=== PATIENT | male | born 1960 | race Caucasian/White ===

== ENCOUNTER → 2017-05-16 | Outpatient (REF) | payer OTHER ==
[~2017-05-16] MED LIST: /ESCI20TA PO; /MELO7TA PO; /TAMS4CA PO; ALPR0.5T3 PO; AMIT25TA PO; ASPI81TA4 PO; ATIV1TAB7 PO; CARA1TAB2 PO; COLA100C5 PO; DILA2TAB6 PO; DILA4TAB PO; DOCU100C PO; ENTO3CAP5 PO; FLON0.05; HEPA100SY IV; IMIT100T PO; LISI-538 PO; LOPR1TAB6 PO; LYRI75CA PO; MACR100C42 PO; MELO7.5S PO; MS C200T PO; MULTCAP PO; NEUR300C PO; NICO21DI4; NICO21PAT TD; NORC1TAB4 PO; OMEGA 3 PO; ONETAB4 PO; PENT500C4 PO; PERC5TAB12 PO; PRAV40TA2 PO; PRIL40CA PO; REGL10TA6 PO; SALI0.9I2 IV; THERGRAN; TIZA4CAP3 PO; TYLE325T5 PO; VITA10002 PO; VITAMIN B COMPLE1 PO; XANA1TAB2 PO; ZEST20TA8 PO; ZOFR4SOL PO; ZOFR8TAB SL; [UNRECOGNIZED DRUG - CODE] TD; [UNRECOGNIZED DRUG - CODE] TOP
== END ==
LOC: M SMT 16:43
PROVIDERS: ATTEND Nurse Practitioner Women's Health
DX: Z85.51 Personal history of malignant neoplasm of bladder (principal)

== ENCOUNTER 2017-05-19 10:57 | Outpatient (CLI) | payer OTHER ==
[~2017-05-19] VITALS: Ht 180.3 cm; Wt 100.0 kg
[~2017-05-19 10:57] MED LIST changes: +SODIUM CHLORIDE 0.9% INJ 10 ML SYR IV SCH
== END 2017-05-19 11:55 | disposition home or self-care (01) ==
LOC: M INFU 10:57
PROVIDERS: ATTEND Urology
DX: R97.20 Elevated prostate specific antigen [PSA] (principal); Z85.51 Personal history of malignant neoplasm of bladder; K50.90 Crohn's disease, unspecified, without complications; F17.210 Nicotine dependence, cigarettes, uncomplicated; Z88.5 Allergy status to narcotic agent; Z88.8 Allergy status to other drugs, medicaments and biological substances; Z88.2 Allergy status to sulfonamides; Z91.040 Latex allergy status; Z79.899 Other long term (current) drug therapy

== ENCOUNTER 2017-08-09 12:34 | Day surgery (SDC) | payer OTHER ==
[2017-08-09] MEDS ORDERED: fentaNYL 250 MCG/5 ML INJECTION (J3010) As Ordered ×2 (13:20)
[2017-08-09] MEDS ORDERED: ONDANSETRON 4MG/2ML VIAL (J2405) As Ordered ×2 (14:33)
[2017-08-09] MEDS: ONDANSETRON 4MG/2ML VIAL (J2405) IV ×2 (14:40)
[2017-08-09] MEDS: LR 1,000 ML IV ×2 (14:40)
[2017-08-09] MEDS ORDERED: ROCURONIUM BROMIDE 50 MG/5 ML VIAL As Ordered ×2 (16:05)
[2017-08-09] MEDS ORDERED: LIDOCAINE 2% INJ 100 MG/5 ML SDV (FOR ANES.) As Ordered ×2 (16:05)
[2017-08-09] MEDS ORDERED: MIDAZOLAM INJ 2 MG/2 ML VIAL (J2250) As Ordered ×2 (16:06)
[2017-08-09] MEDS ORDERED: PROPOFOL 200 MG/20 ML VIAL As Ordered ×2 (16:06)
[2017-08-09] MEDS ORDERED: SUGAMMADEX SODIUM 500 MG/5 ML VIAL (BRIDION) As Ordered ×2 (17:25)
[2017-08-09] MEDS ORDERED: fentaNYL 100 MCG/2 ML INJECTION (J3010) IV ×2 (18:30)
[2017-08-09] MEDS ORDERED: HYDROmorphone HCL 1 MG/ML SYRINGE (J1170) IV ×2 (18:30)
[2017-08-09] MEDS ORDERED: LR 1,000 ML IV ×2 (18:30)
== END 2017-08-09 19:20 | disposition home or self-care (01) ==
LOC: M SDC 19:20
DX: Z85.51 Personal history of malignant neoplasm of bladder (principal); K50.90 Crohn's disease, unspecified, without complications; K21.9 Gastro-esophageal reflux disease without esophagitis; T88.59XD Other complications of anesthesia, subsequent encounter; I10 Essential (primary) hypertension; K58.9 Irritable bowel syndrome, unspecified; M12.9 Arthropathy, unspecified; Z88.1 Allergy status to other antibiotic agents; Z88.2 Allergy status to sulfonamides; Z88.5 Allergy status to narcotic agent; Z88.6 Allergy status to analgesic agent; Z88.8 Allergy status to other drugs, medicaments and biological substances; Z79.899 Other long term (current) drug therapy; Z79.01 Long term (current) use of anticoagulants; Z86.718 Personal history of other venous thrombosis and embolism; Z72.0 Tobacco use
CPT/HCPCS: 52000

== ENCOUNTER → 2017-08-14 | Outpatient (REF) | payer OTHER ==
[2017-08-14 13:37] LABS: APPEARANCE, URINE CLEAR (CLEAR); BACTERIA, URINE AUTO NEGATIVE (NEGATIVE); BILIRUBIN, URINE AUTO NEGATIVE (NEGATIVE); BLOOD, URINE BLOOD 1+ (NEGATIVE); COLOR, URINE YELLOW (YELLOW); GLUCOSE, URINE (UA) AUTO NEGATIVE (NEGATIVE); KETONE, URINE AUTO NEGATIVE (NEGATIVE); LEUKOCYTE ESTERASE, URINE AUTO NEGATIVE (NEGATIVE); MUCUS, URINE SMALL (NEGATIVE); NITRITE, URINE AUTO NEGATIVE (NEGATIVE); PROTEIN, URINE AUTO NEGATIVE (NEGATIVE); RBC, URINE AUTO 2 /HPF (0-3); SPECIFIC GRAVITY URINE AUTO 1.019 (1.002-1.035); SQUAMOUS EPITHELIAL CELL UR AU 0 /HPF (0-6); UROBILINOGEN, URINE AUTO 0.2 mg/dL (0.0-2.0); WBC, URINE AUTO 1 /HPF (0-3)
== END ==
LOC: M SMT 13:06
DX: R30.0 Dysuria (principal)

== ENCOUNTER 2017-08-31 18:49 | Inpatient (IN) | payer OTHER ==
[2017-08-31] MEDS: ONDANSETRON 4MG/2ML VIAL (J2405) IV (20:13)
[2017-08-31] MEDS: HYDROmorphone HCL 1 MG/ML SYRINGE (J1170) IV ×4 (20:13→23:14)
[2017-08-31] MEDS: GASTROGRAFIN SOLUTION 30ML PO ×2 (20:15→20:33)
[2017-08-31 20:28] LABS: BASO % 0.3 % (0.0-1.0); EOS % 0.1 % (0.0-3.0); HEMATOCRIT 42.8 % (42.0-52.0); HEMOGLOBIN 14.8 g/dl (14.0-18.0); IMMATURE GRANULOCYTE # 0.1 10^3/uL (0-0); IMMATURE GRANULOCYTE % 1.4 % (0-0); LYMPH # 0.6 10^3/uL (1.5-4.5); LYMPH % 6.2 % (24.0-44.0); MEAN CORPUSCULAR HEMOGLOBIN 32.5 pg (27.0-33.0); MEAN CORPUSCULAR HGB CONC 34.6 g/dl (32.0-36.5); MEAN CORPUSCULAR VOLUME 94.1 fl (80.0-96.0); MONO # 0.1 10^3/uL (0.0-0.8); MONO % 0.6 % (0.0-5.0); NEUTROPHILS # 8.6 10^3/uL (1.8-7.7); NEUTROPHILS % 91.4 % (36.0-66.0); PLATELET COUNT, AUTOMATED 379 10^3/uL (150-450); RED BLOOD COUNT 4.55 10^6/uL (4.30-6.10); RED CELL DISTRIBUTION WIDTH 12.7 % (11.5-14.5); WHITE BLOOD COUNT 9.4 10^3/uL (4.0-10.0)
[2017-08-31 20:41] LABS: KETONE, URINE AUTO RFX TRACE mg/dL (NEGATIVE); LEUKOCYTE ESTERASE UR AUTO RFX TRACE (NEGATIVE); MUCUS, URINE RFX SMALL (NEGATIVE); NITRITE, URINE AUTO RFX NEGATIVE (NEGATIVE); RBC, URINE AUTO RFX 2 /HPF (0-3); SPECIFIC GRAVITY UR AUTO RFX 1.021 (1.002-1.035); SQUAM EPITHELIAL CELL UR AURFX 0 /HPF (0-6); WBC, URINE AUTO RFX 1 /HPF (0-3)
[2017-08-31 20:42] LABS: ALBUMIN 3.8 GM/DL (3.2-5.2); ALBUMIN/GLOBULIN RATIO 1.19 (1.00-1.93); ALKALINE PHOSPHATASE 89 U/L (45-117); ALT/SGPT 70 U/L (12-78); ANION GAP 6 MEQ/L (8-16); AST/SGOT 29 U/L (7-37); BILIRUBIN,DIRECT 0.1 MG/DL (0.0-0.2); BILIRUBIN,TOTAL 0.3 MG/DL (0.2-1.0); BLOOD UREA NITROGEN 13 MG/DL (7-18); CALCIUM LEVEL 8.5 MG/DL (8.5-10.1); CARBON DIOXIDE LEVEL 26 MEQ/L (21-32); CHLORIDE LEVEL 110 MEQ/L (98-107); GLOMERULAR FILTRATION RATE > 60.0 (>56); GLUCOSE, FASTING 138 MG/DL (70-100); LIPASE 223 U/L (73-393); POTASSIUM SERUM 4.4 MEQ/L (3.5-5.1); SODIUM LEVEL 142 MEQ/L (136-145)
[2017-08-31 20:43] LABS: LACTIC ACID SEPSIS PROTOCOL 1.2 MMOL/L (0.4-2.0)
[2017-08-31 20:44] LABS: INR 1.03; PROTHROMBIN TIME 13.6 SECONDS (12.4-14.5)
[2017-08-31 20:45] LABS: PARTIAL THROMBOPLASTIN TIME 34.4 SECONDS (26.8-37.9)
[2017-08-31] MEDS: PROMETHAZINE INJ 25 MG/ML VIAL (J2550) IV (21:59)
[2017-09-01] MEDS ORDERED: HYDROmorphone 2 MG TAB PO (00:30)
[2017-09-01] MEDS: ONDANSETRON 4MG/2ML VIAL (J2405) IV ×2 (01:17→09:02)
[2017-09-01] MEDS: NS 1,000 ML IV ×2 (01:18→14:22)
[2017-09-01] MEDS ORDERED: HYDROmorphone HCL 1 MG/ML SYRINGE (J1170) IV (01:30)
[2017-09-01] MEDS: HYDROmorphone HCL 1 MG/ML SYRINGE (J1170) IV ×7 (01:44→21:42)
[2017-09-01] MEDS: LOSARTAN 50 MG TAB PO ×2 (01:48→21:41)
[2017-09-01] MEDS ORDERED: ENOXAPARIN 40 MG/0.4 ML SYRINGE (J1650) SC (09:00)
[2017-09-01] MEDS ORDERED: OMEPRAZOLE 20 MG CAP PO (09:00)
[2017-09-01] MEDS: SODIUM CHLORIDE 0.9% INJ 10 ML SYR IV (09:00)
[2017-09-01] MEDS: PANTOPRAZOLE 40MG INJ (PROTONIX) (C9113) IV (09:01)
[2017-09-01] MEDS: ENOXAPARIN 100MG/1ML SYRINGE (J1650) SC ×2 (09:01→20:00)
[2017-09-01] MEDS: MIRALAX *UNIT DOSE* 17GM PACKET PO (12:14)
[2017-09-01] MEDS: METOCLOPRAMIDE INJ 10MG/2ML VIAL (J2765) IV ×2 (12:14→18:19)
[2017-09-01] MEDS: ERYTHROMYCIN ETHYLSUCCINATE 400 MG TAB PO ×2 (14:22→18:18)
[2017-09-02] MEDS: METOCLOPRAMIDE INJ 10MG/2ML VIAL (J2765) IV ×4 (00:44→18:08)
[2017-09-02] MEDS: ERYTHROMYCIN ETHYLSUCCINATE 400 MG TAB PO ×4 (00:44→18:08)
[2017-09-02] MEDS: HYDROmorphone HCL 1 MG/ML SYRINGE (J1170) IV ×7 (00:45→21:18)
[2017-09-02] MEDS: NS 1,000 ML IV ×2 (04:14→18:08)
[2017-09-02 04:40] LABS: HEMATOCRIT 36.2 % (42.0-52.0); MEAN CORPUSCULAR HEMOGLOBIN 32.1 pg (27.0-33.0); MEAN CORPUSCULAR HGB CONC 33.7 g/dl (32.0-36.5); MEAN CORPUSCULAR VOLUME 95.3 fl (80.0-96.0); PLATELET COUNT, AUTOMATED 327 10^3/uL (150-450); WHITE BLOOD COUNT 10.7 10^3/uL (4.0-10.0)
[2017-09-02 04:45] LABS: HEMOGLOBIN 12.2 g/dl (14.0-18.0)
[2017-09-02 05:04] LABS: ALBUMIN 3.1 GM/DL (3.2-5.2); ALBUMIN/GLOBULIN RATIO 1.29 (1.00-1.93); ALKALINE PHOSPHATASE 63 U/L (45-117); ALT/SGPT 53 U/L (12-78); ANION GAP 7 MEQ/L (8-16); AST/SGOT 18 U/L (7-37); BILIRUBIN,TOTAL 0.4 MG/DL (0.2-1.0); BLOOD UREA NITROGEN 12 MG/DL (7-18); CALCIUM LEVEL 7.8 MG/DL (8.5-10.1); CARBON DIOXIDE LEVEL 27 MEQ/L (21-32); CHLORIDE LEVEL 109 MEQ/L (98-107); CREATININE FOR GFR 0.91 MG/DL (0.70-1.30); GLOMERULAR FILTRATION RATE > 60.0 (>56); GLUCOSE, FASTING 73 MG/DL (70-100); POTASSIUM SERUM 3.8 MEQ/L (3.5-5.1); SODIUM LEVEL 143 MEQ/L (136-145); TOTAL PROTEIN 5.5 GM/DL (6.4-8.2)
[2017-09-02] MEDS: ENOXAPARIN 100MG/1ML SYRINGE (J1650) SC ×2 (09:20→21:17)
[2017-09-02] MEDS: PANTOPRAZOLE 40MG INJ (PROTONIX) (C9113) IV (09:20)
[2017-09-02] MEDS: SODIUM CHLORIDE 0.9% INJ 10 ML SYR IV (09:20)
[2017-09-02] MEDS: MIRALAX *UNIT DOSE* 17GM PACKET PO (09:21)
[2017-09-02] MEDS: ONDANSETRON 4MG/2ML VIAL (J2405) IV (12:47)
[2017-09-02] MEDS: diphenhydrAMINE 25 MG CAP PO (15:31)
[2017-09-02] MEDS: LOSARTAN 50 MG TAB PO (21:17)
[2017-09-03] MEDS: ERYTHROMYCIN ETHYLSUCCINATE 400 MG TAB PO ×4 (00:46→14:14)
[2017-09-03] MEDS: METOCLOPRAMIDE INJ 10MG/2ML VIAL (J2765) IV ×4 (00:46→18:01)
[2017-09-03] MEDS: HYDROmorphone HCL 1 MG/ML SYRINGE (J1170) IV ×7 (00:46→21:31)
[2017-09-03] MEDS: NS 1,000 ML IV ×2 (04:04→18:02)
[2017-09-03 04:15] LABS: HEMATOCRIT 37.3 % (42.0-52.0); HEMOGLOBIN 12.8 g/dl (14.0-18.0); MEAN CORPUSCULAR HEMOGLOBIN 32.6 pg (27.0-33.0); MEAN CORPUSCULAR HGB CONC 34.3 g/dl (32.0-36.5); MEAN CORPUSCULAR VOLUME 94.9 fl (80.0-96.0); PLATELET COUNT, AUTOMATED 301 10^3/uL (150-450); RED BLOOD COUNT 3.93 10^6/uL (4.30-6.10); RED CELL DISTRIBUTION WIDTH 12.8 % (11.5-14.5); WHITE BLOOD COUNT 8.4 10^3/uL (4.0-10.0)
[2017-09-03 04:58] LABS: ALBUMIN 3.2 GM/DL (3.2-5.2); ALBUMIN/GLOBULIN RATIO 1.07 (1.00-1.93); ALKALINE PHOSPHATASE 76 U/L (45-117); ALT/SGPT 53 U/L (12-78); ANION GAP 9 MEQ/L (8-16); AST/SGOT 19 U/L (7-37); BILIRUBIN,TOTAL 0.6 MG/DL (0.2-1.0); BLOOD UREA NITROGEN 9 MG/DL (7-18); CALCIUM LEVEL 8.2 MG/DL (8.5-10.1); CARBON DIOXIDE LEVEL 27 MEQ/L (21-32); CHLORIDE LEVEL 107 MEQ/L (98-107); CREATININE FOR GFR 0.86 MG/DL (0.70-1.30); GLOMERULAR FILTRATION RATE > 60.0 (>56); GLUCOSE, FASTING 71 MG/DL (70-100); POTASSIUM SERUM 3.6 MEQ/L (3.5-5.1); SODIUM LEVEL 143 MEQ/L (136-145); TOTAL PROTEIN 6.2 GM/DL (6.4-8.2)
[2017-09-03] MEDS: PANTOPRAZOLE 40MG INJ (PROTONIX) (C9113) IV (07:41)
[2017-09-03] MEDS: ONDANSETRON 4MG/2ML VIAL (J2405) IV ×2 (07:41→21:33)
[2017-09-03] MEDS: ENOXAPARIN 100MG/1ML SYRINGE (J1650) SC ×2 (07:41→21:32)
[2017-09-03] MEDS: MIRALAX *UNIT DOSE* 17GM PACKET PO (07:42)
[2017-09-03] MEDS: SODIUM CHLORIDE 0.9% INJ 10 ML SYR IV (07:43)
[2017-09-03] MEDS: diphenhydrAMINE 25 MG CAP PO (14:32)
[2017-09-03] MEDS: LOSARTAN 50 MG TAB PO (21:33)
[2017-09-04] MEDS: METOCLOPRAMIDE INJ 10MG/2ML VIAL (J2765) IV ×5 (00:16→23:10)
[2017-09-04] MEDS: HYDROmorphone HCL 1 MG/ML SYRINGE (J1170) IV ×8 (00:17→22:48)
[2017-09-04 04:28] LABS: HEMATOCRIT 38.2 % (42.0-52.0); HEMOGLOBIN 13.1 g/dl (14.0-18.0); MEAN CORPUSCULAR HEMOGLOBIN 32.3 pg (27.0-33.0); MEAN CORPUSCULAR HGB CONC 34.3 g/dl (32.0-36.5); MEAN CORPUSCULAR VOLUME 94.3 fl (80.0-96.0); PLATELET COUNT, AUTOMATED 312 10^3/uL (150-450); RED BLOOD COUNT 4.05 10^6/uL (4.30-6.10); RED CELL DISTRIBUTION WIDTH 12.8 % (11.5-14.5); WHITE BLOOD COUNT 9.2 10^3/uL (4.0-10.0)
[2017-09-04 05:01] LABS: ALBUMIN 3.2 GM/DL (3.2-5.2); ALKALINE PHOSPHATASE 71 U/L (45-117); ALT/SGPT 49 U/L (12-78); ANION GAP 7 MEQ/L (8-16); AST/SGOT 21 U/L (7-37); BILIRUBIN,TOTAL 0.5 MG/DL (0.2-1.0); BLOOD UREA NITROGEN 8 MG/DL (7-18); CALCIUM LEVEL 8.4 MG/DL (8.5-10.1); CARBON DIOXIDE LEVEL 28 MEQ/L (21-32); CHLORIDE LEVEL 106 MEQ/L (98-107); CREATININE FOR GFR 0.88 MG/DL (0.70-1.30); GLOMERULAR FILTRATION RATE > 60.0 (>56); GLUCOSE, FASTING 78 MG/DL (70-100); POTASSIUM SERUM 3.8 MEQ/L (3.5-5.1); SODIUM LEVEL 141 MEQ/L (136-145); TOTAL PROTEIN 6.1 GM/DL (6.4-8.2)
[2017-09-04] MEDS: ERYTHROMYCIN ETHYLSUCCINATE 400 MG TAB PO ×5 (06:29→23:11)
[2017-09-04] MEDS: NS 1,000 ML IV ×2 (08:26→22:33)
[2017-09-04] MEDS: PANTOPRAZOLE 40MG INJ (PROTONIX) (C9113) IV (08:27)
[2017-09-04] MEDS: MIRALAX *UNIT DOSE* 17GM PACKET PO (08:27)
[2017-09-04] MEDS: SODIUM CHLORIDE 0.9% INJ 10 ML SYR IV ×2 (08:27→18:35)
[2017-09-04] MEDS: ENOXAPARIN 100MG/1ML SYRINGE (J1650) SC ×2 (08:27→20:43)
[2017-09-04] MEDS: ONDANSETRON 4MG/2ML VIAL (J2405) IV (20:43)
[2017-09-04] MEDS: LOSARTAN 50 MG TAB PO (20:46)
[2017-09-04] MEDS: diphenhydrAMINE 25 MG CAP PO (23:10)
[2017-09-05] MEDS: HYDROmorphone HCL 1 MG/ML SYRINGE (J1170) IV ×7 (03:31→22:10)
[2017-09-05] MEDS: ONDANSETRON 4MG/2ML VIAL (J2405) IV ×4 (03:39→22:09)
[2017-09-05] MEDS: METOCLOPRAMIDE INJ 10MG/2ML VIAL (J2765) IV ×4 (05:23→23:49)
[2017-09-05] MEDS: ERYTHROMYCIN ETHYLSUCCINATE 400 MG TAB PO ×4 (05:23→23:49)
[2017-09-05 05:34] LABS: HEMATOCRIT 39.2 % (42.0-52.0); HEMOGLOBIN 13.6 g/dl (14.0-18.0); MEAN CORPUSCULAR HEMOGLOBIN 32.5 pg (27.0-33.0); MEAN CORPUSCULAR HGB CONC 34.7 g/dl (32.0-36.5); MEAN CORPUSCULAR VOLUME 93.6 fl (80.0-96.0); PLATELET COUNT, AUTOMATED 327 10^3/uL (150-450); RED BLOOD COUNT 4.19 10^6/uL (4.30-6.10); RED CELL DISTRIBUTION WIDTH 12.9 % (11.5-14.5)
[2017-09-05 06:00] LABS: ALBUMIN 3.2 GM/DL (3.2-5.2); ALKALINE PHOSPHATASE 75 U/L (45-117); ALT/SGPT 51 U/L (12-78); ANION GAP 7 MEQ/L (8-16); AST/SGOT 20 U/L (7-37); BILIRUBIN,TOTAL 0.6 MG/DL (0.2-1.0); BLOOD UREA NITROGEN 6 MG/DL (7-18); CALCIUM LEVEL 8.7 MG/DL (8.5-10.1); CARBON DIOXIDE LEVEL 29 MEQ/L (21-32); CHLORIDE LEVEL 105 MEQ/L (98-107); CREATININE FOR GFR 0.86 MG/DL (0.70-1.30); GLOMERULAR FILTRATION RATE > 60.0 (>56); GLUCOSE, FASTING 80 MG/DL (70-100); POTASSIUM SERUM 3.7 MEQ/L (3.5-5.1); SODIUM LEVEL 141 MEQ/L (136-145); TOTAL PROTEIN 6.1 GM/DL (6.4-8.2)
[2017-09-05] MEDS: SODIUM CHLORIDE 0.9% INJ 10 ML SYR IV ×2 (07:38→23:04)
[2017-09-05] MEDS: MIRALAX *UNIT DOSE* 17GM PACKET PO (07:58)
[2017-09-05] MEDS: PANTOPRAZOLE 40MG INJ (PROTONIX) (C9113) IV (08:02)
[2017-09-05] MEDS: ENOXAPARIN 100MG/1ML SYRINGE (J1650) SC ×2 (08:02→20:29)
[2017-09-05] MEDS: NS 1,000 ML IV (09:45)
[2017-09-05] MEDS: LOSARTAN 50 MG TAB PO (20:29)
[2017-09-05] MEDS: diphenhydrAMINE 25 MG CAP PO (22:11)
[2017-09-06] MEDS: HYDROmorphone HCL 1 MG/ML SYRINGE (J1170) IV ×2 (01:28→05:22)
[2017-09-06] MEDS: SODIUM CHLORIDE 0.9% INJ 10 ML SYR IV ×3 (01:29→07:40)
[2017-09-06] MEDS: METOCLOPRAMIDE INJ 10MG/2ML VIAL (J2765) IV (05:21)
[2017-09-06] MEDS: ONDANSETRON 4MG/2ML VIAL (J2405) IV (05:21)
[2017-09-06] MEDS: ERYTHROMYCIN ETHYLSUCCINATE 400 MG TAB PO ×3 (05:21→07:37)
[2017-09-06 05:40] LABS: HEMATOCRIT 39.4 % (42.0-52.0); HEMOGLOBIN 13.5 g/dl (14.0-18.0); MEAN CORPUSCULAR HEMOGLOBIN 32.4 pg (27.0-33.0); MEAN CORPUSCULAR HGB CONC 34.3 g/dl (32.0-36.5); MEAN CORPUSCULAR VOLUME 94.5 fl (80.0-96.0); PLATELET COUNT, AUTOMATED 338 10^3/uL (150-450); RED BLOOD COUNT 4.17 10^6/uL (4.30-6.10); RED CELL DISTRIBUTION WIDTH 13.1 % (11.5-14.5); WHITE BLOOD COUNT 8.5 10^3/uL (4.0-10.0)
[2017-09-06 06:05] LABS: ALBUMIN 3.3 GM/DL (3.2-5.2); ALBUMIN/GLOBULIN RATIO 1.18 (1.00-1.93); ALKALINE PHOSPHATASE 72 U/L (45-117); ALT/SGPT 48 U/L (12-78); ANION GAP 9 MEQ/L (8-16); AST/SGOT 18 U/L (7-37); BILIRUBIN,TOTAL 0.4 MG/DL (0.2-1.0); BLOOD UREA NITROGEN 9 MG/DL (7-18); CALCIUM LEVEL 8.5 MG/DL (8.5-10.1); CARBON DIOXIDE LEVEL 28 MEQ/L (21-32); CHLORIDE LEVEL 108 MEQ/L (98-107); CREATININE FOR GFR 0.99 MG/DL (0.70-1.30); GLOMERULAR FILTRATION RATE > 60.0 (>56); GLUCOSE, FASTING 83 MG/DL (70-100); POTASSIUM SERUM 3.9 MEQ/L (3.5-5.1); SODIUM LEVEL 145 MEQ/L (136-145); TOTAL PROTEIN 6.1 GM/DL (6.4-8.2)
[2017-09-06] MEDS: MIRALAX *UNIT DOSE* 17GM PACKET PO (07:31)
[2017-09-06] MEDS: PANTOPRAZOLE 40MG TAB (PROTONIX) PO (07:41)
[2017-09-06] MEDS: ENOXAPARIN 100MG/1ML SYRINGE (J1650) SC (07:41)
[2017-09-06] MEDS: ONDANSETRON 4 MG ORAL DISINTEGRATING TAB (S0181) SL (08:15)
[2017-09-06] MEDS: traMADol 50 MG TAB PO (08:40)
== END 2017-09-06 14:57 | disposition home or self-care (01) | DRG 251 ==
LOC: M ED INP 23:30 → M MSPAV 09-01 00:52 → M ED 18:49
DX: R10.9 Unspecified abdominal pain (principal); I10 Essential (primary) hypertension; M10.9 Gout, unspecified; K21.9 Gastro-esophageal reflux disease without esophagitis; M19.90 Unspecified osteoarthritis, unspecified site; F17.220 Nicotine dependence, chewing tobacco, uncomplicated; F17.210 Nicotine dependence, cigarettes, uncomplicated; K59.00 Constipation, unspecified; Z86.718 Personal history of other venous thrombosis and embolism; Z79.01 Long term (current) use of anticoagulants; Z79.899 Other long term (current) drug therapy; Z98.1 Arthrodesis status; Z90.49 Acquired absence of other specified parts of digestive tract; Z88.6 Allergy status to analgesic agent; Z88.5 Allergy status to narcotic agent; Z88.2 Allergy status to sulfonamides; Z91.040 Latex allergy status; Z88.8 Allergy status to other drugs, medicaments and biological substances

== ENCOUNTER 2017-09-10 18:03 | Inpatient (IN) | payer OTHER ==
[2017-09-10 19:47] LABS: BASO # 0.1 10^3/uL (0.0-0.2); BASO % 0.6 % (0.0-1.0); EOS # 0.2 10^3/uL (0.0-0.50); EOS % 1.3 % (0.0-3.0); HEMATOCRIT 40.5 % (42.0-52.0); HEMOGLOBIN 13.7 g/dl (14.0-18.0); IMMATURE GRANULOCYTE % 0.5 % (0-3.0); LYMPH # 1.9 10^3/uL (1.5-4.5); MEAN CORPUSCULAR HEMOGLOBIN 32.7 pg (27.0-33.0); MEAN CORPUSCULAR HGB CONC 33.8 g/dl (32.0-36.5); MEAN CORPUSCULAR VOLUME 96.7 fl (80.0-96.0); MONO # 0.7 10^3/uL (0.0-0.8); MONO % 5.5 % (0.0-5.0); NEUTROPHILS # 9.8 10^3/uL (1.8-7.7); NEUTROPHILS % 77.1 % (36.0-66.0); PLATELET COUNT, AUTOMATED 287 10^3/uL (150-450); RED BLOOD COUNT 4.19 10^6/uL (4.30-6.10); RED CELL DISTRIBUTION WIDTH 13.5 % (11.5-14.5); WHITE BLOOD COUNT 12.7 10^3/uL (4.0-10.0)
[2017-09-10] MEDS: NS 500 ML IV (19:47)
[2017-09-10] MEDS: diphenhydrAMINE INJ 50MG/ML VIAL (J1200) IV (19:48)
[2017-09-10] MEDS: HALOPERIDOL 5 MG/ML VIAL (J1630) IV (19:48)
[2017-09-10] MEDS: HYDROmorphone HCL 1 MG/ML SYRINGE (J1170) IV ×3 (19:48→22:56)
[2017-09-10] MEDS: GASTROGRAFIN SOLUTION 30ML PO ×2 (19:56→20:30)
[2017-09-10 20:02] LABS: ALBUMIN 3.6 GM/DL (3.2-5.2); ALKALINE PHOSPHATASE 80 U/L (45-117); ALT/SGPT 39 U/L (12-78); ANION GAP 7 MEQ/L (8-16); AST/SGOT 16 U/L (7-37); BILIRUBIN,DIRECT 0.1 MG/DL (0.0-0.2); BILIRUBIN,TOTAL 0.4 MG/DL (0.2-1.0); BLOOD UREA NITROGEN 8 MG/DL (7-18); CALCIUM LEVEL 8.5 MG/DL (8.5-10.1); CARBON DIOXIDE LEVEL 28 MEQ/L (21-32); CHLORIDE LEVEL 107 MEQ/L (98-107); CREATININE FOR GFR 0.95 MG/DL (0.70-1.30); GLOMERULAR FILTRATION RATE > 60.0 (>56); GLUCOSE, FASTING 102 MG/DL (70-100); LIPASE 138 U/L (73-393); POTASSIUM SERUM 3.8 MEQ/L (3.5-5.1); SODIUM LEVEL 142 MEQ/L (136-145); TOTAL PROTEIN 6.6 GM/DL (6.4-8.2)
[2017-09-10 20:04] LABS: INR 1.04; PROTHROMBIN TIME 13.7 SECONDS (12.4-14.5)
[2017-09-10 20:06] LABS: LACTIC ACID SEPSIS PROTOCOL 2.7 MMOL/L (0.4-2.0)
[2017-09-10] MEDS ORDERED: ISOVUE-370 76% 100ML VIAL (Q9967) As Ordered (20:35)
[2017-09-11] MEDS ORDERED: DOCUSATE SODIUM 100 MG CAP PO (01:30)
[2017-09-11] MEDS ORDERED: FLUTICASONE PROP 0.05% NASAL SPRAY 16 GM (FLONASE) (01:30)
[2017-09-11] MEDS: NS 1,000 ML IV ×3 (02:13→19:39)
[2017-09-11] MEDS: HYDROmorphone HCL 1 MG/ML SYRINGE (J1170) IV ×7 (02:16→22:52)
[2017-09-11] MEDS: ONDANSETRON 4MG/2ML VIAL (J2405) IV ×4 (02:20→22:52)
[2017-09-11] MEDS: RIVAROXABAN 20 MG TAB (XARELTO) PO ×2 (02:59→21:16)
[2017-09-11] MEDS: LOSARTAN 50 MG TAB PO ×2 (02:59→21:16)
[2017-09-11] MEDS: PANTOPRAZOLE 40MG INJ (PROTONIX) (C9113) IV (09:36)
[2017-09-11 11:26] LABS: BASO # 0.1 10^3/uL (0.0-0.2); BASO % 0.7 % (0.0-1.0); EOS # 0.3 10^3/uL (0.0-0.50); EOS % 3.6 % (0.0-3.0); HEMATOCRIT 37.7 % (42.0-52.0); HEMOGLOBIN 12.7 g/dl (14.0-18.0); IMMATURE GRANULOCYTE % 0.9 % (0-3.0); LYMPH # 2.3 10^3/uL (1.5-4.5); LYMPH % 31.5 % (24.0-44.0); MEAN CORPUSCULAR HEMOGLOBIN 32.8 pg (27.0-33.0); MEAN CORPUSCULAR HGB CONC 33.7 g/dl (32.0-36.5); MEAN CORPUSCULAR VOLUME 97.4 fl (80.0-96.0); MONO # 0.6 10^3/uL (0.0-0.8); MONO % 8.3 % (0.0-5.0); NEUTROPHILS # 4.1 10^3/uL (1.8-7.7); PLATELET COUNT, AUTOMATED 238 10^3/uL (150-450); RED BLOOD COUNT 3.87 10^6/uL (4.30-6.10); RED CELL DISTRIBUTION WIDTH 13.5 % (11.5-14.5); WHITE BLOOD COUNT 7.4 10^3/uL (4.0-10.0)
[2017-09-11 11:45] LABS: ERYTHROCYTE SEDIMENTATION RATE 19 mm/hr (0-20)
[2017-09-11 11:56] LABS: ANION GAP 5 MEQ/L (8-16); BLOOD UREA NITROGEN 9 MG/DL (7-18); C REACTIVE PROTEIN QUANTITATIV 0.59 MG/DL (0.00-0.30); CALCIUM LEVEL 8.3 MG/DL (8.5-10.1); CARBON DIOXIDE LEVEL 30 MEQ/L (21-32); CHLORIDE LEVEL 108 MEQ/L (98-107); GLOMERULAR FILTRATION RATE > 60.0 (>56); GLUCOSE, FASTING 83 MG/DL (70-100); POTASSIUM SERUM 3.8 MEQ/L (3.5-5.1); SODIUM LEVEL 143 MEQ/L (136-145)
[2017-09-11] MEDS: diphenhydrAMINE 25 MG CAP PO (19:38)
[2017-09-12] MEDS: HYDROmorphone HCL 1 MG/ML SYRINGE (J1170) IV ×8 (01:42→23:36)
[2017-09-12] MEDS: ONDANSETRON 4MG/2ML VIAL (J2405) IV ×3 (05:21→17:39)
[2017-09-12] MEDS: NS 1,000 ML IV ×3 (05:21→23:36)
[2017-09-12 07:18] LABS: HEMATOCRIT 38.2 % (42.0-52.0); HEMOGLOBIN 12.7 g/dl (14.0-18.0); MEAN CORPUSCULAR HEMOGLOBIN 31.8 pg (27.0-33.0); MEAN CORPUSCULAR HGB CONC 33.2 g/dl (32.0-36.5); MEAN CORPUSCULAR VOLUME 95.7 fl (80.0-96.0); PLATELET COUNT, AUTOMATED 241 10^3/uL (150-450); RED BLOOD COUNT 3.99 10^6/uL (4.30-6.10); RED CELL DISTRIBUTION WIDTH 12.9 % (11.5-14.5); WHITE BLOOD COUNT 7.4 10^3/uL (4.0-10.0)
[2017-09-12 07:41] LABS: ANION GAP 9 MEQ/L (8-16); BLOOD UREA NITROGEN 9 MG/DL (7-18); CALCIUM LEVEL 8.3 MG/DL (8.5-10.1); CARBON DIOXIDE LEVEL 27 MEQ/L (21-32); CHLORIDE LEVEL 106 MEQ/L (98-107); CREATININE FOR GFR 0.85 MG/DL (0.70-1.30); GLOMERULAR FILTRATION RATE > 60.0 (>56); GLUCOSE, FASTING 72 MG/DL (70-100); POTASSIUM SERUM 3.6 MEQ/L (3.5-5.1); SODIUM LEVEL 142 MEQ/L (136-145)
[2017-09-12] MEDS: diphenhydrAMINE 25 MG CAP PO (09:30)
[2017-09-12] MEDS: PANTOPRAZOLE 40MG INJ (PROTONIX) (C9113) IV (09:30)
[2017-09-12] MEDS: RIVAROXABAN 20 MG TAB (XARELTO) PO (20:46)
[2017-09-12] MEDS: LOSARTAN 50 MG TAB PO (20:46)
[2017-09-13] MEDS: HYDROmorphone HCL 1 MG/ML SYRINGE (J1170) IV ×5 (02:31→14:33)
[2017-09-13] MEDS: ONDANSETRON 4MG/2ML VIAL (J2405) IV ×2 (05:37→11:38)
[2017-09-13 05:52] LABS: HEMATOCRIT 38.2 % (42.0-52.0); HEMOGLOBIN 13.1 g/dl (14.0-18.0); MEAN CORPUSCULAR HEMOGLOBIN 32.2 pg (27.0-33.0); MEAN CORPUSCULAR HGB CONC 34.3 g/dl (32.0-36.5); MEAN CORPUSCULAR VOLUME 93.9 fl (80.0-96.0); PLATELET COUNT, AUTOMATED 249 10^3/uL (150-450); RED BLOOD COUNT 4.07 10^6/uL (4.30-6.10); RED CELL DISTRIBUTION WIDTH 12.8 % (11.5-14.5); WHITE BLOOD COUNT 8.3 10^3/uL (4.0-10.0)
[2017-09-13 06:13] LABS: ANION GAP 9 MEQ/L (8-16); BLOOD UREA NITROGEN 10 MG/DL (7-18); CALCIUM LEVEL 8.1 MG/DL (8.5-10.1); CARBON DIOXIDE LEVEL 26 MEQ/L (21-32); CHLORIDE LEVEL 106 MEQ/L (98-107); CREATININE FOR GFR 0.82 MG/DL (0.70-1.30); GLOMERULAR FILTRATION RATE > 60.0 (>56); GLUCOSE, FASTING 68 MG/DL (70-100); POTASSIUM SERUM 3.7 MEQ/L (3.5-5.1); SODIUM LEVEL 141 MEQ/L (136-145)
[2017-09-13] MEDS: PANTOPRAZOLE 40MG INJ (PROTONIX) (C9113) IV (08:33)
[2017-09-13] MEDS: NS 1,000 ML IV (08:34)
== END 2017-09-13 17:20 | disposition home or self-care (01) | DRG 251 ==
LOC: M ED INP 09-11 01:07 → M MS5PR 09-11 01:45 → M ED 18:03
DX: R10.9 Unspecified abdominal pain (principal); K50.90 Crohn's disease, unspecified, without complications; I10 Essential (primary) hypertension; K66.0 Peritoneal adhesions (postprocedural) (postinfection); K21.9 Gastro-esophageal reflux disease without esophagitis; Z79.01 Long term (current) use of anticoagulants; Z91.040 Latex allergy status; Z88.2 Allergy status to sulfonamides; Z88.5 Allergy status to narcotic agent; Z88.8 Allergy status to other drugs, medicaments and biological substances; Z98.1 Arthrodesis status; F17.210 Nicotine dependence, cigarettes, uncomplicated

== ENCOUNTER → 2017-10-30 | Outpatient (REF) | payer MEDICARE, OTHER, MEDICAID ==
[2017-10-30 13:51] LABS: APPEARANCE, URINE HAZY (CLEAR); BACTERIA, URINE AUTO NEGATIVE (NEGATIVE); BILIRUBIN, URINE AUTO NEGATIVE (NEGATIVE); BLOOD, URINE BLOOD 1+ (NEGATIVE); COLOR, URINE YELLOW (YELLOW); GLUCOSE, URINE (UA) AUTO NEGATIVE (NEGATIVE); KETONE, URINE AUTO NEGATIVE (NEGATIVE); LEUKOCYTE ESTERASE, URINE AUTO NEGATIVE (NEGATIVE); MUCUS, URINE SMALL (NEGATIVE); NITRITE, URINE AUTO NEGATIVE (NEGATIVE); PROTEIN, URINE AUTO NEGATIVE (NEGATIVE); RBC, URINE AUTO 1 /HPF (0-3); SPECIFIC GRAVITY URINE AUTO 1.019 (1.002-1.035); SQUAMOUS EPITHELIAL CELL UR AU 0 /HPF (0-6); UROBILINOGEN, URINE AUTO 0.2 mg/dL (0.0-2.0); WBC, URINE AUTO 1 /HPF (0-3)
== END ==
LOC: M SMT 12:51
DX: R35.0 Frequency of micturition (principal)
CPT/HCPCS: 81001

== ENCOUNTER 2018-01-24 21:30 | Inpatient (IN) | payer MEDICARE, MEDICAID ==
[~2018-01-24 21:30] MED LIST changes: -/ESCI20TA PO; -/MELO7TA PO; -/TAMS4CA PO; -ALPR0.5T3 PO; -AMIT25TA PO; -ASPI81TA4 PO; -ATIV1TAB7 PO; -CARA1TAB2 PO; -COLA100C5 PO; -DILA2TAB6 PO; -DILA4TAB PO; -DOCU100C PO; -ENTO3CAP5 PO; -FLON0.05; -HEPA100SY IV; -IMIT100T PO; +KETOROLAC 30 MG/ML VIAL (J1885) IV; -LISI-538 PO; -LOPR1TAB6 PO; -LYRI75CA PO; -MACR100C42 PO; -MELO7.5S PO; +MOM 30ML SUSPENSION UDC PO; -MS C200T PO; -MULTCAP PO; -NEUR300C PO; -NICO21DI4; -NICO21PAT TD; -NORC1TAB4 PO; -OMEGA 3 PO; -ONETAB4 PO; -PENT500C4 PO; -PERC5TAB12 PO; -PRAV40TA2 PO; -PRIL40CA PO; -REGL10TA6 PO; -SALI0.9I2 IV; -SODIUM CHLORIDE 0.9% INJ 10 ML SYR IV SCH; -THERGRAN; -TIZA4CAP3 PO; -TYLE325T5 PO; -VITA10002 PO; -VITAMIN B COMPLE1 PO; -XANA1TAB2 PO; -ZEST20TA8 PO; -ZOFR4SOL PO; -ZOFR8TAB SL; -[UNRECOGNIZED DRUG - CODE] TD; -[UNRECOGNIZED DRUG - CODE] TOP
[2018-01-24] MEDS: SENOKOT S TAB PO (22:21)
[2018-01-24] MEDS: ONDANSETRON 4MG/2ML VIAL (J2405) IV (22:32)
[2018-01-24] MEDS: MORPHINE 4 MG/ML 1ML VIAL/SYRINGE (J2270) IV (22:45)
[2018-01-24] MEDS: LR 1,000 ML IV (23:00)
[2018-01-25] MEDS: MORPHINE 4 MG/ML 1ML VIAL/SYRINGE (J2270) IV ×9 (01:09→22:18)
[2018-01-25] MEDS: ONDANSETRON 4MG/2ML VIAL (J2405) IV ×3 (06:12→22:18)
[2018-01-25] MEDS: LR 1,000 ML IV ×3 (06:12→21:57)
[2018-01-25 07:33] LABS: BASO # 0.1 10^3/uL (0.0-0.2); BASO % 0.8 % (0.0-1.0); EOS # 0.2 10^3/uL (0.0-0.50); EOS % 2.8 % (0.0-3.0); HEMATOCRIT 38.8 % (42.0-52.0); HEMOGLOBIN 13.1 g/dl (13.5-17.5); IMMATURE GRANULOCYTE % 0.7 % (0-3.0); LYMPH % 26.1 % (24.0-44.0); MEAN CORPUSCULAR HEMOGLOBIN 32.2 pg (27.0-33.0); MEAN CORPUSCULAR HGB CONC 33.8 g/dl (32.0-36.5); MEAN CORPUSCULAR VOLUME 95.3 fl (80.0-96.0); MONO # 0.6 10^3/uL (0.0-0.8); NEUTROPHILS # 4.6 10^3/uL (1.8-7.7); NEUTROPHILS % 61.6 % (36.0-66.0); PLATELET COUNT, AUTOMATED 254 10^3/uL (150-450); RED BLOOD COUNT 4.07 10^6/uL (4.30-6.10); WHITE BLOOD COUNT 7.5 10^3/uL (4.0-10.0)
[2018-01-25 07:55] LABS: ANION GAP 8 MEQ/L (8-16); BLOOD UREA NITROGEN 11 MG/DL (7-18); CALCIUM LEVEL 8.2 MG/DL (8.5-10.1); CARBON DIOXIDE LEVEL 29 MEQ/L (21-32); CHLORIDE LEVEL 108 MEQ/L (98-107); GLOMERULAR FILTRATION RATE > 60.0 (>56); GLUCOSE, FASTING 100 MG/DL (70-100); POTASSIUM SERUM 4.2 MEQ/L (3.5-5.1); SODIUM LEVEL 145 MEQ/L (136-145)
[2018-01-25] MEDS: SENOKOT S TAB PO ×2 (08:19→20:31)
[2018-01-25] MEDS: METOCLOPRAMIDE INJ 10MG/2ML VIAL (J2765) IV ×3 (08:19→20:30)
[2018-01-25] MEDS: LOSARTAN 50 MG TAB PO (09:37)
[2018-01-25] MEDS: diphenhydrAMINE 25 MG CAP PO (11:21)
[2018-01-25] MEDS: RIVAROXABAN 20 MG TAB (XARELTO) PO (17:04)
[2018-01-25] MEDS: clonazePAM 1 MG TAB PO (17:04)
[2018-01-25] MEDS ORDERED: METOCLOPRAMIDE INJ 10MG/2ML VIAL (J2765) IV (18:00)
[2018-01-25] MEDS ORDERED: LOSARTAN 50 MG TAB PO (21:00)
[2018-01-26] MEDS: MORPHINE 4 MG/ML 1ML VIAL/SYRINGE (J2270) IV ×11 (01:46→23:56)
[2018-01-26] MEDS: METOCLOPRAMIDE INJ 10MG/2ML VIAL (J2765) IV ×4 (01:46→20:06)
[2018-01-26] MEDS: LR 1,000 ML IV ×3 (05:14→21:00)
[2018-01-26] MEDS: ONDANSETRON 4MG/2ML VIAL (J2405) IV ×2 (07:02→20:06)
[2018-01-26 07:03] LABS: C REACTIVE PROTEIN QUANTITATIV 1.46 MG/DL (0.00-0.30)
[2018-01-26] MEDS: LOSARTAN 50 MG TAB PO (08:05)
[2018-01-26] MEDS: SENOKOT S TAB PO ×2 (08:05→21:46)
[2018-01-26] MEDS: RIVAROXABAN 20 MG TAB (XARELTO) PO (17:20)
[2018-01-27] MEDS: MORPHINE 4 MG/ML 1ML VIAL/SYRINGE (J2270) IV ×4 (02:25→09:11)
[2018-01-27] MEDS: METOCLOPRAMIDE INJ 10MG/2ML VIAL (J2765) IV ×2 (02:25→08:39)
[2018-01-27] MEDS: LR 1,000 ML IV (04:29)
[2018-01-27] MEDS: ONDANSETRON 4MG/2ML VIAL (J2405) IV (06:30)
[2018-01-27 07:10] LABS: HEMATOCRIT 41.8 % (42.0-52.0); HEMOGLOBIN 14.2 g/dl (13.5-17.5); MEAN CORPUSCULAR HEMOGLOBIN 32.1 pg (27.0-33.0); MEAN CORPUSCULAR VOLUME 94.6 fl (80.0-96.0); PLATELET COUNT, AUTOMATED 264 10^3/uL (150-450); RED BLOOD COUNT 4.42 10^6/uL (4.30-6.10); RED CELL DISTRIBUTION WIDTH 13.2 % (11.5-14.5); WHITE BLOOD COUNT 7.2 10^3/uL (4.0-10.0)
[2018-01-27 07:47] LABS: ANION GAP 10 MEQ/L (8-16); BLOOD UREA NITROGEN 10 MG/DL (7-18); CALCIUM LEVEL 8.6 MG/DL (8.5-10.1); CARBON DIOXIDE LEVEL 28 MEQ/L (21-32); CHLORIDE LEVEL 103 MEQ/L (98-107); CREATININE FOR GFR 0.85 MG/DL (0.70-1.30); GLOMERULAR FILTRATION RATE > 60.0 (>56); GLUCOSE, FASTING 65 MG/DL (70-100); SODIUM LEVEL 141 MEQ/L (136-145)
[2018-01-27] MEDS: SENOKOT S TAB PO (08:39)
[2018-01-27] MEDS: LOSARTAN 50 MG TAB PO (08:39)
[2018-01-27] MEDS ORDERED: SODIUM CHLORIDE 0.9% INJ 10 ML SYR IV (11:45)
[2018-01-27] MEDS: SODIUM CHLORIDE 0.9% INJ 10 ML SYR IV (12:06)
== END 2018-01-27 12:20 | disposition home or self-care (01) | DRG 390 ==
LOC: M PED 21:30
DX: K56.51 Intestinal adhesions [bands], with partial obstruction (principal); M17.12 Unilateral primary osteoarthritis, left knee; I10 Essential (primary) hypertension; Z79.01 Long term (current) use of anticoagulants; Z79.899 Other long term (current) drug therapy; Z91.040 Latex allergy status; Z88.2 Allergy status to sulfonamides; Z86.718 Personal history of other venous thrombosis and embolism; Z88.6 Allergy status to analgesic agent; Z88.5 Allergy status to narcotic agent; Z88.8 Allergy status to other drugs, medicaments and biological substances

== ENCOUNTER → 2018-05-23 | Outpatient (REF) | payer MEDICARE, MEDICAID ==
[2018-05-23 14:33] LABS: APPEARANCE, URINE CLEAR (CLEAR); BACTERIA, URINE AUTO NEGATIVE (NEGATIVE); BILIRUBIN, URINE AUTO NEGATIVE (NEGATIVE); BLOOD, URINE BLOOD NEGATIVE (NEGATIVE); COLOR, URINE YELLOW (YELLOW); GLUCOSE, URINE (UA) AUTO NEGATIVE (NEGATIVE); KETONE, URINE AUTO NEGATIVE (NEGATIVE); LEUKOCYTE ESTERASE, URINE AUTO NEGATIVE (NEGATIVE); NITRITE, URINE AUTO NEGATIVE (NEGATIVE); PROTEIN, URINE AUTO NEGATIVE (NEGATIVE); RBC, URINE AUTO 1 /HPF (0-3); SPECIFIC GRAVITY URINE AUTO 1.019 (1.002-1.035); SQUAMOUS EPITHELIAL CELL UR AU 0 /HPF (0-6); UROBILINOGEN, URINE AUTO 0.2 mg/dL (0.0-2.0); WBC, URINE AUTO 1 /HPF (0-3)
== END ==
LOC: M SMT 13:25
DX: R30.0 Dysuria (principal)
CPT/HCPCS: 81001

== ENCOUNTER → 2018-08-16 | Outpatient (REF) | payer MEDICARE, MEDICAID ==
[~2018-08-16] MED LIST changes: +/ESCI20TA PO; +/MELO7TA PO; +/TAMS4CA PO; +ALPR0.5T3 PO; +AMIT25TA PO; +ASPI81TA4 PO; +ATIV1TAB7 PO; +CARA1TAB2 PO; +COLA100C5 PO; +DILA2TAB6 PO; +DILA4TAB PO; +DOCU100C PO; +ENTO3CAP5 PO; +FLON0.05; +FLON1SPR; +HEPA100SY IV; +IMIT100T PO; -KETOROLAC 30 MG/ML VIAL (J1885) IV; +LINZ72CA PO; +LISI-538 PO; +LOPR1TAB6 PO; +LOSA50TA88 PO; +LYRI75CA PO; +MACR100C42 PO; +MELO7.5S PO; -MOM 30ML SUSPENSION UDC PO; +MS C200T PO; +MULTCAP PO; +NEUR300C PO; +NICO21DI4; +NICO21PAT TD; +NORC1TAB4 PO; +OMEGA 3 PO; +ONDA4TAB5 PO; +ONETAB4 PO; +PENT500C4 PO; +PERC5TAB12 PO; +PRAV40TA2 PO; +PRED10TA2 PO; +PRIL40CA PO; +REGL10TA6 PO; +SALI0.9I2 IV; +THERGRAN; +TIZA4CAP PO; +TRAM50TA2 PO; +TYLE325T5 PO; +VITA10002 PO; +VITA30005 SL; +VITAMIN B COMPLE1 PO; +VITMTA PO; +XANA1TAB2 PO; +XARE20TA PO; +ZEST20TA8 PO; +ZOFR4SOL PO; +ZOFR8TAB24 SL; +[UNRECOGNIZED DRUG - CODE] TD; +[UNRECOGNIZED DRUG - CODE] TOP
[2018-08-16 13:24] LABS: APPEARANCE, URINE HAZY (CLEAR); BACTERIA, URINE AUTO NEGATIVE (NEGATIVE); BILIRUBIN, URINE AUTO NEGATIVE (NEGATIVE); BLOOD, URINE BLOOD NEGATIVE (NEGATIVE); COLOR, URINE YELLOW (YELLOW); GLUCOSE, URINE (UA) AUTO NEGATIVE (NEGATIVE); KETONE, URINE AUTO NEGATIVE (NEGATIVE); LEUKOCYTE ESTERASE, URINE AUTO NEGATIVE (NEGATIVE); MUCUS, URINE SMALL (NEGATIVE); NITRITE, URINE AUTO NEGATIVE (NEGATIVE); PROTEIN, URINE AUTO NEGATIVE (NEGATIVE); RBC, URINE AUTO 3 /HPF (0-3); SQUAMOUS EPITHELIAL CELL UR AU 0 /HPF (0-6); UROBILINOGEN, URINE AUTO 0.2 mg/dL (0.0-2.0); WBC, URINE AUTO 1 /HPF (0-3)
== END ==
LOC: M SMT 13:05
PROVIDERS: ATTEND Nurse Practitioner Women's Health
DX: R30.0 Dysuria (principal)
CPT/HCPCS: 81001; 87086; G0463

== ENCOUNTER → 2018-10-25 | Outpatient (REF) | payer MEDICARE, MEDICAID ==
[~2018-10-25] MED LIST changes: +OMEP10CASR PO
== END ==
LOC: M SMT 13:05
PROVIDERS: ATTEND Urology
DX: R30.0 Dysuria (principal)

== ENCOUNTER 2018-11-07 08:39 | Day surgery (SDC) | payer MEDICARE, MEDICAID ==
[~2018-11-07] VITALS: Ht 180.3 cm; Wt 102.1 kg
[~2018-11-07 08:39] MED LIST changes: -/ESCI20TA PO; -/MELO7TA PO; -/TAMS4CA PO; +BUDE3CAP15 PO; -ENTO3CAP5 PO; +FLOM0.4C39 PO; +LEXA1TAB2 PO; +MOBI4TAB PO; +NICO21DI3 TD; -NICO21PAT TD; -NORC1TAB4 PO; +NORC1TAB7 PO
[2018-11-07 09:28] LABS: INR 1.08; PROTHROMBIN TIME 14.1 SECONDS (12.1-14.4)
[2018-11-07] MEDS ORDERED: MIDAZOLAM INJ 2 MG/2 ML VIAL (J2250) As Ordered ONE (10:06)
[2018-11-07] MEDS ORDERED: LIDOCAINE 2% INJ 100 MG/5 ML SDV (FOR ANES.) As Ordered ONE (10:06)
[2018-11-07] MEDS ORDERED: PROPOFOL 200 MG/20 ML VIAL As Ordered ONE (10:06)
[2018-11-07] MEDS ORDERED: ONDANSETRON 4MG/2ML VIAL (J2405) As Ordered ONE (10:06)
[2018-11-07] MEDS ORDERED: fentaNYL 100 MCG/2 ML INJECTION (J3010) As Ordered ONE ×2 (10:06→10:40)
[2018-11-07] MEDS ORDERED: dexameTHASONE 4 MG/ML 1ML VIAL (J1100) As Ordered ONE (10:06)
[2018-11-07] MEDS ORDERED: LABETALOL HCL 100 MG/20 ML VIAL As Ordered ONE (10:40)
[2018-11-07] MEDS: LABETALOL HCL 100 MG/20 ML VIAL IV SCH ×4 (10:43→11:08)
[2018-11-07] MEDS ORDERED: LR 1,000 ML IV SCH (10:45)
[2018-11-07] MEDS ORDERED: ONDANSETRON 4MG/2ML VIAL (J2405) IV PRN (10:45)
[2018-11-07] MEDS ORDERED: ACETAMINOPHEN TAB 650MG DOSE (2X325MG) PO PRN (10:45)
[2018-11-07] MEDS ORDERED: MEPERIDINE INJ 25 MG/ML VIAL (J2175) IV PRN (10:45)
[2018-11-07] MEDS ORDERED: PERCOCET 5MG/325MG TAB PO PRN (10:45)
[2018-11-07] MEDS ORDERED: METOCLOPRAMIDE INJ 10MG/2ML VIAL (J2765) IV PRN (10:45)
[2018-11-07] MEDS: fentaNYL 100 MCG/2 ML INJECTION (J3010) IV PRN ×4 (10:45→11:08)
--- NOTE | 2018-11-07 10:49 | RO ---
DATE OF PROCEDURE: 11/07/2018 PREPROCEDURE DIAGNOSIS: History of bladder cancer, gross hematuria. POSTPROCEDURE DIAGNOSIS: Gross hematuria. PROCEDURE: Cystoscopy, fulguration of prostatic urethral bleeding. SURGEON: Dr. Cristi Barth AUDIT REVIEWER: None. ANESTHESIA: General. OPERATIVE INDICATIONS: This is a 58-year-old male with a history of low grade bladder cancer who is recently having gross hematuria. He did not want to have a cystoscopy done in the office and was therefore brought to the operating room today to investigate the source of bleeding. DESCRIPTION OF PROCEDURE: The patient was brought to the operating room and general anesthesia was induced. Prophylactic antibiotics were infused. He was then placed in dorsal lithotomy position and prepped and draped in the usual sterile fashion. A rigid cystoscope was then inserted into the urethral meatus and advanced into the bladder. The bladder was then thoroughly examined with both the 30 and 70 degrees lenses and no tumors or other concerning lesions were seen within the bladder. Bilateral ureteral orifices were orthotopic and both effluxed clear urine. This indicated that the source of bleeding was likely not from the bladder. I then withdrew the scope and examined the prostatic urethra and noted there was a small amount of bleeding coming from the prostatic urethra at 12 o'clock. This was fulgurated using a Bugbee. The patient had bilobar benign prostatic hyperplasia and the prostate did appear to be very vascular. At this point, after fulgurating the bleeding area, the bladder was emptied of all fluids and then the scope was removed. This marked the conclusion of the procedure. The patient was then taken out of the dorsal lithotomy position, awakened from anesthesia and transported to the recovery room in stable condition. Estimated blood loss: 5 mL. Complications: None. Specimen: None. Plan: The patient will followup in the clinic in a few weeks to see if his hematuria resolves. I suspect that the hematuria is related to bleeding from a very vascular prostate. He is also on Xarelto and this probably contributes to it.
[2018-11-07 11:08] VITALS: BP 156/96
[2018-11-07] MEDS ORDERED: HYDROMORPHONE HCL 0.5 MG/ 0.5 ML SYRINGE (J1170 PER 1) As Ordered ONE ×2 (11:14→11:40)
[2018-11-07] MEDS: HYDROMORPHONE HCL 0.5 MG/ 0.5 ML SYRINGE (J1170 PER 1) IV PRN ×4 (11:21→12:00)
[2018-11-07 12:55] VITALS: BP 150/92
[2018-11-07] MEDS ORDERED: SODIUM CHLORIDE 0.9% INJ 10 ML SYR IV PRN (13:15)
== END 2018-11-07 13:37 | disposition home or self-care (01) ==
LOC: M SDC 08:39
PROVIDERS: ATTEND Urology
DX: R31.0 Gross hematuria (principal); Z85.51 Personal history of malignant neoplasm of bladder; R97.20 Elevated prostate specific antigen [PSA]; I10 Essential (primary) hypertension; K21.9 Gastro-esophageal reflux disease without esophagitis; K50.90 Crohn's disease, unspecified, without complications; K58.8 Other irritable bowel syndrome; Z79.01 Long term (current) use of anticoagulants; Z91.040 Latex allergy status; Z88.8 Allergy status to other drugs, medicaments and biological substances; Z79.899 Other long term (current) drug therapy; F17.220 Nicotine dependence, chewing tobacco, uncomplicated; Z86.718 Personal history of other venous thrombosis and embolism
CPT/HCPCS: 52214; 85610; J1100; J2250; J2405; J3010

== ENCOUNTER → 2018-12-10 | Outpatient (REF) | payer MEDICARE, MEDICAID ==
[2018-12-10 13:57] LABS: APPEARANCE, URINE CLEAR (CLEAR); BACTERIA, URINE AUTO NEGATIVE (NEGATIVE); BILIRUBIN, URINE AUTO NEGATIVE (NEGATIVE); BLOOD, URINE BLOOD NEGATIVE (NEGATIVE); COLOR, URINE YELLOW (YELLOW); GLUCOSE, URINE (UA) AUTO NEGATIVE (NEGATIVE); KETONE, URINE AUTO TRACE mg/dL (NEGATIVE); LEUKOCYTE ESTERASE, URINE AUTO NEGATIVE (NEGATIVE); MUCUS, URINE SMALL (NEGATIVE); NITRITE, URINE AUTO NEGATIVE (NEGATIVE); PROTEIN, URINE AUTO NEGATIVE (NEGATIVE); RBC, URINE AUTO 2 /HPF (0-3); SPECIFIC GRAVITY URINE AUTO 1.023 (1.002-1.035); SQUAMOUS EPITHELIAL CELL UR AU 0 /HPF (0-6); WBC, URINE AUTO 2 /HPF (0-3)
== END ==
LOC: M SMT 13:27
PROVIDERS: ATTEND Urology
DX: R39.15 Urgency of urination (principal)
CPT/HCPCS: 81001; 87086; G0463

== ENCOUNTER 2020-10-29 02:33 | Inpatient (IN) | payer MEDICARE, MEDICAID ==
[~2020-10-29] VITALS: Ht 180.3 cm; Wt 108.1 kg
[~2020-10-29 02:33] MED LIST changes: -AMIT25TA PO; +AMIT25TA17 PO; +CYAN100049 PO; -LISI-538 PO; +LISI20TA33 PO; +ONDA-83 PO; -ONDA4TAB5 PO; -VITA10002 PO
[2020-10-29] MEDS ORDERED: NS 500 ML IV ONE (03:00)
[2020-10-29] MEDS ORDERED: ONDANSETRON 4MG/2ML VIAL IV ONE (03:00)
[2020-10-29] MEDS ORDERED: POTA1TAB14 (03:12)
[2020-10-29] MEDS ORDERED: PRED20TA (03:12)
[2020-10-29] MEDS: HYDROMORPHONE HCL 0.5 MG/ 0.5 ML SYRINGE (J1170 PER 1) IV PRN ×3 (03:18→21:45)
[2020-10-29 03:42] LABS: BASO # 0.1 10^3/uL (0.0-0.2); BASO % 0.5 % (0.0-1.0); EOS # 0.1 10^3/uL (0.0-0.5); EOS % 0.3 % (0.0-3.0); HEMOGLOBIN 16.2 g/dl (13.5-17.5); LYMPH # 0.8 10^3/uL (1.5-5.0); LYMPH % 4.5 % (24.0-44.0); MEAN CORPUSCULAR HEMOGLOBIN 31.7 pg (27.0-33.0); MEAN CORPUSCULAR HGB CONC 32.4 g/dl (32.0-36.5); MEAN CORPUSCULAR VOLUME 97.8 fl (80.0-96.0); MONO # 1.2 10^3/uL (0.0-0.8); MONO % 6.7 % (2.0-8.0); NEUTROPHILS # 15.3 10^3/uL (1.5-8.5); NEUTROPHILS % 87.2 % (36.0-66.0); PLATELET COUNT, AUTOMATED 357 10^3/uL (150-450); RED BLOOD COUNT 5.11 10^6/uL (4.30-6.10); WHITE BLOOD COUNT 17.5 10^3/uL (4.0-10.0)
[2020-10-29] MEDS ORDERED: PRED20TA PO (04:34)
[2020-10-29] MEDS ORDERED: VITA500T37 PO (04:34)
[2020-10-29] MEDS ORDERED: VITMTA PO (04:34)
--- NOTE | 2020-10-29 05:18 | CR.PDOC ---
General Date of Consultation: Oct 29, 2020 Referring Provider: Zay Macedo Attending Physician: LEA COLON MD Consultation REASON FOR CONSULTATION/CHIEF COMPLAINT: [HTN]. HISTORY OF PRESENT ILLNESS: [This is a 60 y/o M with a pmh of crohn's s/p 5 bowel resection surgeries, dvt, and htn transferred to our ED after being diagnosed with an SBO via CT at an outside facility. Patient states that his symptoms began a day ago and include severe abd pain, distention, non-bloody emesis, nausea and constipation. Patient states he had one small bowel movement yesterday but it was hard to pass. Patient states he is not passing flatus. Patient denies fever, chills, chest pain, sob. ]. ALLERGIES: Please see below. HOME MEDICATIONS: Please see below. PAST MEDICAL HISTORY: 1. See HPI PAST SURGICAL HISTORY: 1. See HPI SOCIAL HISTORY: Tobacco use:[quit smoking one year ago] ETOH: [denies] Illicit drug use: [denies] REVIEW OF SYSTEMS: CONSTITUTIONAL: [See HPI]. HEENT: [Denies URI sx]. CARDIOVASCULAR: [See HPI]. RESPIRATORY: [See HPI]. GENITOURINARY: [Denies dysuria]. MUSCULOSKELETAL: [Denies acute joint pain]. GASTROINTESTINAL: [See HPI]. SKIN: [Denies rash]. NEUROLOGICAL: [Denies syncope]. PHYSICAL EXAMINATION: VITAL SIGNS: Please see below. GENERAL APPEARANCE: [This is a 60 y/o male who is lying in bed in moderate distress due to pain.]. HEENT: [No mass or lesion. EOMI. No scleral icterus or conjunctival erythema. Nares patent. Oral mucosa moist.]. RESPIRATORY: [Good air flow auscultated. No wheezing, rales or rhonchi]. CARDIOVASCULAR: [Tachy rate, regular rhythm. No murmurs, rubs or gallops]. ABDOMEN: [Abdomen distended, firm. Tender to palpation throughout]. EXTREMITIES: [No peripheral edema, clubbing, cyanosis]. NEUROLOGICAL: [A+Ox3. Speech clear. no focal deficits]. PSYCHIATRIC: [Mood and affect appear appropriate]. LABORATORY DATA: Please see below. ASSESSMENT/PLAN: 1. [SBO - Dr. Macedo, surgery, primary provider - Continue NG tube, pain control, nausea control per his orders ]. 2. [HTN - Patient's bp elevated in ED with readings up to 150s/90s - Recommend continue patient's at home losartan 50mg - We will order hydralazine 10mg iv one time - Patient's bp is likely acutely elevated in some part due to his pain. As treatment undergoes for his sbo and pain control is optimized, we can have a better idea of the need for titration of patient's at home bp meds. 3. DVT prophylaxis - Patient has history of dvt's. - From our standpoint, pt's xarelto may be continued as adequate prophylaxis. Thank you for the consult. Hospitalist team happy to follow]. Vital Signs/I&O Vital Signs Date Time Temp Pulse Resp B/P (MAP) Pulse Ox O2 Delivery O2 Flow Rate FiO2 10/29/20 03:28 18 10/29/20 03:03 98.5 95 136/95 (109) Room Air Laboratory Data Labs 24H Laboratory Tests 2 10/29/20 03:32: Immature Granulocyte % (Auto) 0.8, Neutrophils (%) (Auto) 87.2H, Lymphocytes (%) (Auto) 4.5L, Monocytes (%) (Auto) 6.7, Eosinophils (%) (Auto) 0.3, Basophils (%) (Auto) 0.5, Neutrophils # (Auto) 15.3H, Lymphocytes # (Auto) 0.8L, Monocytes # (Auto) 1.2H, Eosinophils # (Auto) 0.1, Basophils # (Auto) 0.1, Nucleated Red Blood Cells % (auto) 0.0, Lactic Acid Level 2.4*H CBC/BMP Laboratory Tests 10/29/20 03:32 Allergies Coded Allergies: chlorpromazine (Verified Allergy, Intermediate, HIVES, 10/24/18) ibuprofen (Verified Allergy, Intermediate, RASH AND HIVES; CELEBREX OK, 10/24/18) latex (Verified Allergy, Intermediate, HIVES, 10/24/18) hydrocodone (Verified Allergy, Unknown, 10/24/18) Home Medications Scheduled Cyanocobalamin (Vitamin B-12) (Vitamin B-12) 500 Mcg Tablet, 500 MCG PO DAILY, (Reported) Losartan Potassium (Losartan Potassium) 50 Mg Tab, 50 MG PO BID, (Reported) Multivitamins (Thera M Plus Tablet) 1 Each Tablet, 1 TAB PO DAILY, (Reported) Omeprazole (Omeprazole) 10 Mg Capcr, 40 MG PO DAILY, (Reported) Prednisone (Prednisone) 20 Mg Tablet, 20 MG PO TAPER, (Reported) 40MG FOR 3 DAYS, 20MG FOR 3 DAYS AND 10MG FOR 3 DAYS. TODAY (10/29/20) WAS THE LAST DOSE OF 10MG DOSE. Rivaroxaban (Xarelto) 20 Mg Tab, 20 MG PO QHS, (Reported) Scheduled PRN Docusate Sodium (Colace) 100 Mg Cap, 100 MG PO BID PRN for CONSTIPATION, (Reported) OMKAR JOHANSEN Oct 29, 2020 05:18
[2020-10-29] MEDS ORDERED: hydrALAZINE 20MG/ML 1ML VIAL (J0360 PER 20MG) IV ONE (05:35)
[2020-10-29] MEDS: D5W/0.45% SODIUM CHLORIDE 1,000 ML IV SCH ×2 (05:56→11:44)
[2020-10-29 06:00] VITALS: BP 143/90
--- NOTE | 2020-10-29 06:45 | HPE ---
HISTORY AND PHYSICAL DATE OF ADMISSION: 10/29/2020 ADMITTING DIAGNOSIS: Intestinal obstruction. HISTORY OF PRESENT ILLNESS: The patient is a 60-year-old man who presented at [facility] at approximately 9:30 on the night of the 28 of October complaining of abdominal pain for about a day. He has a history of a diagnosis of Crohn's disease going back to about age 15. He has had several major surgeries on his abdomen including resection of small bowel. He last had surgery on his abdomen in July of [address] Bianchi at [facility]. On that occasion, Dr. iBanchi attempted a lysis of adhesions for a prolonged period of obstructive symptoms. He was unable to completely free the bowel because of the extensive adhesions and scarring within the abdomen. The patient subsequently had a gastrostomy tube placed and apparently received some support with total parenteral nutrition for a time. He has done fairly well over the last few years. He developed symptoms with severe pain, particularly starting in the right lower abdomen yesterday and these progressed with development of some nausea and vomiting. At [facility], he was evaluated with a CT scan, which was interpreted by radiologist suggesting a high-grade obstruction of the mid to distal ileum anteriorly in the right mid to lower abdomen. Because they are incapable of managing an intestinal obstruction, he was transferred to [facility] for treatment and I am now asked to evaluate the patient. ALLERGIES: The patient reports an allergy to LATEX. He reports that he cannot take HYDROCODONE or IBUPROFEN because of anaphylaxis and cannot take OXYCODONE because of rash. He reports that he can take fentanyl and morphine and Dilaudid, but usually takes them now with Benadryl to prevent further problems. CURRENT MEDICATIONS: INCLUDE: Benadryl 25 mg daily as needed, bisoprolol fumarate 5 mg daily in the morning, Colace 100 mg twice a day as needed, losartan 50 mg daily, omeprazole 40 mg daily, Xarelto 20 mg one tablet daily and he has been on a taper prednisolone with his last dose given yesterday or today. MEDICAL HISTORY: Significant for reported history of Crohn's. He has prostatic hyperplasia. He has a history of gastroesophageal reflux disease. He has hypertension. He has anxiety. He has a history of diverticulosis. He has extensive bowel adhesions. He has had several episodes of deep venous thrombosis (DVT) in his lower extremities and in his right upper extremity and he is now on snf anticoagulation with Xarelto. SURGICAL HISTORY: Significant for an appendectomy in the distant past. He has had a prostate biopsy. He has had several bowel resections. He has had carpal tunnel surgery. He underwent a cervical spine fusion about 4 to [address] Navarro. He underwent a recent colonoscopy and esophagogastroduodenoscopy (EGD) by Dr. Chen about a week ago. He has had surgery on the right knee. REVIEW OF SYSTEMS: The patient denies any chest pain or palpitations. He denies any shortness of breath. He does report having had a lung infection a month or so ago that was treated with antibiotics; and in the course of treatment for that, he was apparently found to have a small nodule in the right lung. I have not records relating to this. He denies any history of seizures, stroke or transient ischemic attack (TIA). He has had no dysuria or hematuria. He has had no recent bleeding or history of recurrent clot. SOCIAL HISTORY: The patient has a significant other. He is a former smoker, who quit some months ago. He denies any significant alcohol intake. He apparently works on the [employer]. FAMILY HISTORY: Noncontributory. PHYSICAL EXAMINATION: Reveals a pleasant man, lying quietly on the emergency room stretcher, not appearing obviously in discomfort at this point. He has an NG tube in place. The skin is warm and dry. Sclerae are anicteric. Neck is supple without mass. Heart examination shows a regular rhythm about 80. There is no murmur identified. Lungs are clear to auscultation bilaterally. The abdomen is protuberant. He has an oblique 12 cm scar in the right lower quadrant of the abdomen. He has a markedly widened slightly depressed scar down the entire midline of the abdomen. There is depressed scar in the left upper quadrant suggestive of a gastrostomy tube site. Auscultation reveals some bowel sounds present throughout the abdomen. The response with evident tenderness on palpation of the entire abdomen, although this seems to be less pronounced in the right upper quadrant. There is no evident hernia. Extremities revealed no definite peripheral edema and he has palpable radial and dorsalis pedis pulses bilaterally. LABORATORY STUDIES: At [facility] at approximately 9:30, show a white count of 20,000, hemoglobin 16, hematocrit 48 and a platelet count of 421,000. His differential count showed 73% neutrophils, 19% lymphocytes, 5% monocytes. PT, PTT and INR were normal. His chemistries showed sodium 139, potassium 3.4, chloride 98, Co2 of 29, BUN of 21, creatinine 1.4 and a glucose of 134. Liver function tests are entirely normal. Urinalysis is not suggestive of an infection. His CT scan result is as noted previously. He had a COVID 19 test that was negative. A serum lactate was 2.4, which was above the normal limits at [facility]. He received Zofran, morphine and Phenergan at [facility] before transfer. After arrival at [facility], he had further laboratory studies done including a repeat complete blood count (CBC) showing a white count of 18, hemoglobin 16, hematocrit 50 and a platelet count of 357,000. Repeat chemistries showed a lactic acid of 2.4. IMPRESSION: 1. Intestinal obstruction secondary to adhesions. 2. History of Crohn's disease. 3. Hypertension. 4. Anxiety. 5. Prostatic hyperplasia. 6. History of recurrent deep venous thrombosis (DVT) on Xarelto. 7. Gastroesophageal reflux disease. PLAN: The patient will be admitted for management of his bowel obstruction. He has an NG tube in place. We will provide analgesics as necessary. His proton pump inhibitor can be administered intravenously. I will consult the hospitalist service to assist in management of his blood pressure as he will be remaining nothing by mouth for now. Hopefully, his symptoms will remit with nonoperative management. HODA
[2020-10-29] MEDS: MORPHINE 2 MG/ML 1ML VIAL (J2270) IV PRN ×5 (07:55→19:57)
[2020-10-29] MEDS: ONDANSETRON 4MG/2ML VIAL IV PRN ×2 (07:56→16:08)
[2020-10-29] MEDS: PANTOPRAZOLE 40MG VIAL (C9113 PER 1) IV SCH (08:06)
[2020-10-29 10:00] VITALS: BP 135/87
[2020-10-29 10:57] LABS: HEMATOCRIT 43.7 % (42.0-52.0); HEMOGLOBIN 14.5 g/dl (13.5-17.5); MEAN CORPUSCULAR HEMOGLOBIN 31.9 pg (27.0-33.0); MEAN CORPUSCULAR HGB CONC 33.2 g/dl (32.0-36.5); PLATELET COUNT, AUTOMATED 354 10^3/uL (150-450); RED BLOOD COUNT 4.55 10^6/uL (4.30-6.10)
[2020-10-29 11:35] LABS: CALCIUM LEVEL 9.3 MG/DL (8.8-10.2); CREATININE FOR GFR 1.31 MG/DL (0.70-1.30); GLOMERULAR FILTRATION RATE 59.4 (>49); POTASSIUM SERUM 3.3 MEQ/L (3.5-5.1)
--- NOTE | 2020-10-29 13:28 | IPNPDOC ---
Text Note Date of Service The patient was seen on 10/29/20. NOTE Patient was seen and examined by me this morning. The patient continues to have NG tube is in mild discomfort because of that, but otherwise has no other complaints. PHYSICAL EXAMINATION: GENERAL APPEARANCE: Lying in the bed, sleeping and was easily arousable on verbal stimulus. HEENT: No scleral icterus or conjunctival erythema. Nares patent. Oral mucosa moist. NG tube is in place RESPIRATORY: Good air flow auscultated. No wheezing, rales or rhonchi CARDIOVASCULAR: regular rhythm. No murmurs, rubs or gallops ABDOMEN: Mildly Tenderness to palpation throughout, bowel sounds sluggish, no rebound, no guarding EXTREMITIES: No peripheral edema, clubbing, cyanosis NEUROLOGICAL:A+Ox3. Speech clear. no focal deficits PSYCHIATRIC: Mood and affect appear appropriate This is a 60 y/o M with a past medical history of crohn's s/p 5 bowel resection surgeries, last one in 2018, dvt diagnosed in 2018 after his last surgery, was admitted. Surgical services and we were consulted for medical management after being diagnosed with an SBO via CT at an outside facility. Patient states that his symptoms began a day ago and include severe abd pain, distention, non-bloody emesis, nausea and constipation. Surgery admitted the patient and the patient had an NG tube with decompression and the patient has had 300 mL since 7:00 in the morning. And 700 mL in total, greenish biliary fluid. LABORATORY DATA: Please see below. ASSESSMENT/PLAN: 1. SBO: NG decompression. As per Dr. Macedo was the primary. Continue pain control, nausea control and diet and activity orders as per Dr. Macedo. 2. HTN: The patient's blood pressures have been systolic of 140-150. No reason of having a state blood pressure control. Continue to hold losartan 50 mg. If the blood pressure is about 160 systolic. Enalaprilat can be used at 1.25 mg every 6 hours when necessary if the systolic blood pressure is greater than 160. Continue Pain control as that can also help with the blood pressure management 3. DVT : The patient has had DVT when the patient had a last surgery in 2018. He was on Xarelto which is currently on hold. He is high risk for DVTs and for that reason, I'll start Lovenox prophylactic dose for now because he might require surgery. If no surgical indication at this time, then we can go towards therapeutic dose of Lovenox. . We'll continue to monitor and recommend The hospice service. We'll continue to follow the patient. VS,Nayanbone, I+O VS, Fishbone, I+O Laboratory Tests 10/29/20 03:32 10/29/20 08:19 Vital Signs Date Time Temp Pulse Resp B/P (MAP) Pulse Ox O2 Delivery O2 Flow Rate FiO2 10/29/20 10:51 18 10/29/20 10:41 Room Air 10/29/20 10:00 98.5 98 135/87 (103) 92 I&O- Last 24 Hours up to 6 AM 10/29/20 06:00 Intake Total 500 ml Output Total 0 ml Balance 500 ml VIGNESH MASON MD Oct 29, 2020 13:28
[2020-10-29 14:00] VITALS: BP 140/83
[2020-10-29] MEDS ORDERED: D5W/0.9% SODIUM CHLORIDE 1,000 ML IV SCH (14:30)
[2020-10-29] MEDS ORDERED: POTASSIUM CHLORIDE 10 MEQ SR TABLET PO ONE (15:00)
[2020-10-29] MEDS: KCL 20MEQ IN D5/NS 1000ML 1,000 ML IV SCH (15:36)
[2020-10-29 18:00] VITALS: BP 115/58
[2020-10-29] MEDS ORDERED: HYDROMORPHONE HCL 0.5 MG/ 0.5 ML SYRINGE (J1170 PER 1) IV PRN (21:25)
[2020-10-29 22:00] VITALS: BP 122/86
[2020-10-30] MEDS: HYDROMORPHONE HCL 0.5 MG/ 0.5 ML SYRINGE (J1170 PER 1) IV PRN ×5 (00:46→14:36)
[2020-10-30] MEDS: KCL 20MEQ IN D5/NS 1000ML 1,000 ML IV SCH (02:24)
[2020-10-30 06:00] VITALS: BP 131/72
[2020-10-30 06:28] LABS: ALBUMIN 3.2 GM/DL (3.2-5.2); ALT/SGPT 41 U/L (12-78); BILIRUBIN,TOTAL 0.4 MG/DL (0.2-1.0); BLOOD UREA NITROGEN 18 MG/DL (7-18); CALCIUM LEVEL 8.3 MG/DL (8.8-10.2); CARBON DIOXIDE LEVEL 36 MEQ/L (21-32); CHLORIDE LEVEL 104 MEQ/L (98-107); CREATININE FOR GFR 1.11 MG/DL (0.70-1.30); GLOMERULAR FILTRATION RATE > 60.0 (>49); GLUCOSE, FASTING 111 MG/DL (70-100); SODIUM LEVEL 142 MEQ/L (136-145); TOTAL PROTEIN 6.8 GM/DL (6.4-8.2)
[2020-10-30] MEDS: PANTOPRAZOLE 40MG VIAL (C9113 PER 1) IV SCH (07:58)
[2020-10-30] MEDS: ONDANSETRON 4MG/2ML VIAL IV PRN ×2 (08:12→14:35)
[2020-10-30] MEDS ORDERED: ENOXAPARIN 40MG/0.4ML SYRINGE (J1650 PER 10MG) SC SCH (09:00)
[2020-10-30 10:00] VITALS: BP 132/86
--- NOTE | 2020-10-30 11:50 | IPNPDOC ---
Text Note Date of Service The patient was seen on 10/30/20. NOTE Patient was seen and examined by me this morning. The patient continues to have NG tube is in mild discomfort. The draining fluid has cleared up and the patient has been passing gas since last night. PHYSICAL EXAMINATION: GENERAL APPEARANCE: Lying in the bed, sleeping and was easily arousable on verbal stimulus. HEENT: No scleral icterus or conjunctival erythema. Nares patent. Oral mucosa moist. NG tube is in place RESPIRATORY: Good air flow auscultated. No wheezing, rales or rhonchi CARDIOVASCULAR: regular rhythm. No murmurs, rubs or gallops ABDOMEN: Mildly Tenderness to palpation throughout, bowel sounds sluggish, no rebound, no guarding. Bowel sounds better today EXTREMITIES: No peripheral edema, clubbing, cyanosis NEUROLOGICAL:A+Ox3. Speech clear. no focal deficits PSYCHIATRIC: Mood and affect appear appropriate Assessment and plan This is a 60 y/o M with a past medical history of crohn's s/p 5 bowel resection surgeries, last one in 2018, dvt diagnosed in 2018 after his last surgery, was admitted. Surgical services and we were consulted for medical management after being diagnosed with an SBO via CT at an outside facility. Patient states that his symptoms began a day ago and include severe abd pain, distention, non-bloody emesis, nausea and constipation. Surgery admitted the patient and the patient had an NG tube with decompression and the patient has had 3 L, output since the last 36 hours. The patient finally has started improving. He has been passing gas and the NG drain has been clearing. He has a history of DVT in 2018 for which he has been on Xarelto but because he could not take anything orally and for possibility of going for surgery, he was only kept on prophylactic Lovenox. If the surgery is not planning to do anything from surgical standpoint, his Lovenox can be escalated to full dose and if the surgery started him on oral diet, then his Xarelto can be restarted. From the blood pressure standpoint, we have recommended only. Enalaprilat 1.25 every 6. If the blood pressure is greater than 160. 1. SBO: Improving. The patient is passing gas now. NG decompression. As per Dr. Macedo was the primary. Continue pain control, nausea control and diet and activity orders as per Dr. Macedo. 2. HTN: The patient's blood pressures have been systolic of 140-150. No reason of having a state blood pressure control. Continue to hold losartan 50 mg. If the blood pressure is about 160 systolic. Enalaprilat can be used at 1.25 mg every 6 hours when necessary if the systolic blood pressure is greater than 160. Continue Pain control as that can also help with the blood pressure management 3. DVT : The patient has had DVT when the patient had a last surgery in 2018. He was on Xarelto which is currently on hold. He is high risk for DVTs and for that reason, have started Lovenox prophylactic dose for now because he might require surgery. If no surgical indication at this time, then we can go towards therapeutic dose of Lovenox. And if Dr. Macedo wants to start him on a diet and Xarelto can be continued. This has been related to the attending nurse. We'll continue to monitor and recommend The hospitalist service. We'll continue to follow the patient. VS,Fishbone, I+O VS, Fishbone, I+O Laboratory Tests 10/30/20 05:39 Vital Signs Date Time Temp Pulse Resp B/P (MAP) Pulse Ox O2 Delivery O2 Flow Rate FiO2 10/30/20 11:23 18 Nasal Cannula 10/30/20 10:00 98.2 83 132/86 (101) 89 1.0 I&O- Last 24 Hours up to 6 AM 10/30/20 06:00 Intake Total 1313 ml Output Total 3700 ml Balance -2387 ml VIGNESH MASON MD Oct 30, 2020 11:50
[2020-10-30 14:00] VITALS: BP 135/87
--- NOTE | 2020-10-30 15:01 | REP ---
INDICATION: SBO. COMPARISON: 01/25/2018 TECHNIQUE: PA chest with two-view abdomen FINDINGS: PA chest and indwelling right jugular port catheter unchanged the previous study in tip in [facility] [place]. As on the study from 3 years ago, there is a nasogastric tube coursing through the mediastinum extending into the left upper quadrant, tip well into the stomach. Some minor fibrotic changes seen in the left CP angle and retrocardiac left lower lung zone. Lung wall are marginally adequate in the degree of inflation. Heart size might be exaggerated by level of inflation. No vascular redistribution, edema or definite effusion. The aorta is without aneurysm. Airway midline. No widening of the mediastinum. Bones without acute finding. No free air under the diaphragm. Flat and upright abdomen NASCET the Modic suture lines in the right upper quadrant and tree of some of marge in the left upper quadrant and a few overlying the iliac bone on the right. Some pelvic phleboliths are noted. No definite stones over the renal fossa or course of the ureter on either side. Stool and gas scattered in the colon without dilatation. Small bowel loops are mostly fluid-filled but are not dilated. I do not see air-fluid levels. Stomach not distended. Small amount air in the gastric fundus and antrum/duodenal bulb region. Bones without acute finding. IMPRESSION: 1. Nasogastric tube well into the body of the stomach without dilated small bowel loops, air-fluid levels or free air. Scattered stool in the colon without signs of the dilatation, obstruction or constipation. 2. Postsurgical changes as described. All these findings were present in 2018. 3. Some pelvic phleboliths seen with no abnormal calcifications. Bones intact. 4. Chest somewhat hypoinflated. Indwelling port catheter some basilar fibrotic changes and heart size exaggerated by degree of inflation. No arvin edema. No dense consolidation. <Electronically signed by Sathya Mcduffie > 10/30/20 [id number]
--- NOTE | 2020-10-30 15:03 | IPN ---
PROGRESS NOTE DATE: 10/30/2020 HISTORY: Patient was admitted early yesterday morning with abdominal distention and pain and a history of multiple prior bowel obstructions. Nasogastric tube was placed and he was started on analgesics and intravenous (IV) hydration. He reports today that he is feeling somewhat better. He reports having passed a small amount of flatus. He has had no bowel movements. He is voiding. He is eager to get out of the hospital. Vital signs show that he is afebrile over the past 24 hours. His pulse has been in the 80s since yesterday afternoon. Blood pressure is normal. Intake and output show that yesterday he had 1800 in with 3100 recorded out. He had 2 liters of gastric drainage. I suspect he has been taking some ice chips that were not recorded. PHYSICAL EXAMINATION: Patient is lying quietly on the hospital bed. He is alert and oriented. He appears less uncomfortable. His nasogastric (NG) tube is in place and has some watery fluid in the canister. Heart and lung exam is unremarkable. The abdomen remains somewhat distended, but seems somewhat softer overall than it had been. He does have some bowel sounds present, though they seem diminished compared to normal. He has some tenderness, which seems to be most pronounced in the right mid to lower quadrant. LABORATORY STUDIES: Today the patient had a chemistry profile that showed a sodium of 142, potassium 3.0, chloride 104, CO2 36, BUN 18, creatinine 1.1 and a glucose of 111. Liver function tests are normal. A flat and upright abdominal x-ray today basically was normal with no evidence of any significant air within the small bowel. IMPRESSION: The patient is feeling somewhat better, though has not had a full return of bowel function. He continues to take Dilaudid fairly regularly. PLAN: Patient will be kept nothing by mouth for now with the NG tube in place. His abdominal x-ray is heartening in that there are no dilated small bowel loops seen. We will give him a little more time to see if his discomfort will resolve. [facility]
[2020-10-30] MEDS ORDERED: SODIUM CHLORIDE 0.9% INJ 10 ML SYR IV PRN (15:20)
[2020-10-31] MEDS ORDERED: SODIUM CHLORIDE 0.9% INJ 10 ML SYR IV SCH (09:00)
[2020-10-31] MEDS ORDERED: CHLO125TA PO (14:01)
[2020-10-31] MEDS ORDERED: BISO5TAB14 PO (14:01)
[2020-10-31] MEDS ORDERED: TRAZ-252 PO (14:01)
[2020-10-31] MEDS ORDERED: OMEP-221 PO (15:39)
== END 2020-10-30 17:45 | disposition left against medical advice (07) | DRG 389 ==
LOC: M ED 02:33 → EDBD 02:33 → M ED INP 05:19 → ENRESERV 05:50 → M MSPAV 06:27
PROVIDERS: ADMIT Surgery; ATTEND Surgery
DX: K56.50 Intestinal adhesions [bands], unspecified as to partial versus complete obstruction (principal); K50.90 Crohn's disease, unspecified, without complications; I10 Essential (primary) hypertension; K21.9 Gastro-esophageal reflux disease without esophagitis; N40.0 Benign prostatic hyperplasia without lower urinary tract symptoms; Z86.718 Personal history of other venous thrombosis and embolism; Z79.01 Long term (current) use of anticoagulants; Z20.822 Contact with and (suspected) exposure to COVID-19; Z87.891 Personal history of nicotine dependence; Z88.8 Allergy status to other drugs, medicaments and biological substances; Z91.040 Latex allergy status

== ENCOUNTER 2020-10-31 13:50 | Emergency (ER) | payer MEDICARE, MEDICAID ==
[~2020-10-31] VITALS: Ht 180.3 cm; Wt 105.9 kg
[~2020-10-31 13:50] MED LIST changes: +POTA1TAB14; +PRED20TA; +PRED20TA PO; +SODIUM CHLORIDE 0.9% INJ 10 ML SYR IV SCH; +VITA500T37 PO
[2020-10-31] MEDS ORDERED: TRAZ-252 PO (14:01)
[2020-10-31] MEDS ORDERED: CHLO125TA PO (14:01)
[2020-10-31] MEDS ORDERED: BISO5TAB14 PO (14:01)
[2020-10-31] MEDS ORDERED: NS 1,000 ML IV SCH (14:24)
[2020-10-31] MEDS ORDERED: ONDANSETRON 4MG/2ML VIAL IV ONE (14:25)
[2020-10-31] MEDS ORDERED: PANTOPRAZOLE 40MG VIAL (C9113 PER 1) IV ONE (14:25)
[2020-10-31 15:21] LABS: HEMATOCRIT 40.9 % (42.0-52.0); HEMOGLOBIN 13.3 g/dl (13.5-17.5); MEAN CORPUSCULAR HEMOGLOBIN 31.8 pg (27.0-33.0); MEAN CORPUSCULAR HGB CONC 32.5 g/dl (32.0-36.5); MEAN CORPUSCULAR VOLUME 97.8 fl (80.0-96.0); PLATELET COUNT, AUTOMATED 277 10^3/uL (150-450); RED BLOOD COUNT 4.18 10^6/uL (4.30-6.10); WHITE BLOOD COUNT 8.9 10^3/uL (4.0-10.0)
[2020-10-31 15:34] LABS: INR 1.02; PROTHROMBIN TIME 13.7 SECONDS (12.5-14.3)
[2020-10-31] MEDS ORDERED: OMEP-221 PO (15:39)
[2020-10-31] MEDS ORDERED: MORPHINE 4 MG/ML 1ML VIAL/SYRINGE (J2270) IV ONE ×2 (15:40→16:45)
[2020-10-31 15:53] LABS: BLOOD UREA NITROGEN 12 MG/DL (7-18); CALCIUM LEVEL 8.7 MG/DL (8.8-10.2); CARBON DIOXIDE LEVEL 31 MEQ/L (21-32); CHLORIDE LEVEL 105 MEQ/L (98-107); CREATININE FOR GFR 0.96 MG/DL (0.70-1.30); GLOMERULAR FILTRATION RATE > 60.0 (>49); GLUCOSE, FASTING 78 MG/DL (70-100); POTASSIUM SERUM 3.2 MEQ/L (3.5-5.1); SODIUM LEVEL 143 MEQ/L (136-145)
[2020-10-31 15:54] LABS: ALBUMIN 3.2 GM/DL (3.2-5.2); ALT/SGPT 37 U/L (12-78); ATYPICAL LYMPH 4 % (0-5); BILIRUBIN,DIRECT 0.2 MG/DL (0.0-0.2); BILIRUBIN,TOTAL 0.4 MG/DL (0.2-1.0); EOSINOPHILS 2 % (0-3); LIPASE 143 U/L (73-393); TOTAL PROTEIN 6.7 GM/DL (6.4-8.2)
[2020-10-31 15:55] LABS: NEUTROPHILS 60 % (28-66); PLATELET ESTIMATE NORMAL (NORMAL)
[2020-10-31 15:57] LABS: LYMPHOCYTES 24 % (16-44); MONOCYTES 9 % (0-5)
[2020-10-31 16:03] LABS: RSV AMPLIFICATION NEGATIVE (NEGATIVE)
--- NOTE | 2020-10-31 17:09 | REP ---
INDICATION: sbo. COMPARISON: Abdomen/pelvis CT dated 09/10/2017. TECHNIQUE: Abdomen/pelvis CT without IV or bowel contrast. FINDINGS: According to the film file patient has history of Crohn's disease and has had "colectomy" 4 times. Additionally a he has a history of bladder carcinoma. The visualized lung wall are unremarkable except for minor atelectasis posteriorly in the lingula. The unenhanced hepatic parenchyma is homogeneous. The gallbladder, pancreas and spleen are unremarkable. The adrenals and unenhanced kidneys are unremarkable. The abdominal aorta is unremarkable. There is no periaortic adenopathy or mass. There is no bowel distention or obstruction. There is a surgical staple line in the right mid abdomen and there are surgical marge in the abdominal right lower quadrant. There mesentery is unremarkable. There is no ascites. There is descending colon and sigmoid colon diverticulosis. There is no CT evidence of diverticulitis. Pelvis: Patient indicates he has an appendectomy. The bladder is unremarkable. There is no pelvic adenopathy or ascites. IMPRESSION: There is no bowel distention or obstruction. Diverticulosis without diverticulitis. No mesenteric inflammation or ascites. No pneumoperitoneum. Surgical clips compatible with bowel surgery. <Electronically signed by Gilbert Blake > 10/31/20 [id number]
[2020-10-31 17:51] VITALS: BP 149/81
== END 2020-10-31 17:56 | disposition left against medical advice (07) ==
LOC: M ED 13:50
DX: R10.9 Unspecified abdominal pain (principal); R11.0 Nausea; K50.90 Crohn's disease, unspecified, without complications; I10 Essential (primary) hypertension; G47.30 Sleep apnea, unspecified; F17.200 Nicotine dependence, unspecified, uncomplicated; Z79.01 Long term (current) use of anticoagulants; Z88.8 Allergy status to other drugs, medicaments and biological substances; Z88.5 Allergy status to narcotic agent; Z91.040 Latex allergy status
CPT/HCPCS: 74176; 80048; 80076; 83690; 85025; 85610; 87631; 93041; 96374; 96375; 96376; 99284; C9113; J1642; J2270; J2405

== ENCOUNTER → 2023-03-16 | Outpatient (REF) | payer MEDICARE, MEDICAID ==
[~2023-03-16] MED LIST changes: -AMIT25TA17 PO; +AMIT25TA19 PO; +BISO5TAB14 PO; +CHLO125TA PO; +LOSA50TA28 PO; -LOSA50TA88 PO; +OMEP40CA5 PO; +POTA-298; -POTA1TAB14; -SODIUM CHLORIDE 0.9% INJ 10 ML SYR IV SCH; +TRAZ-252 PO
[2023-03-16 19:03] LABS: APPEARANCE, URINE CLEAR (CLEAR); BACTERIA, URINE AUTO NEGATIVE (NEGATIVE); BILIRUBIN, URINE AUTO NEGATIVE (NEGATIVE); BLOOD, URINE BLOOD NEGATIVE (NEGATIVE); COLOR, URINE YELLOW (YELLOW); GLUCOSE, URINE (UA) AUTO NEGATIVE (NEGATIVE); KETONE, URINE AUTO NEGATIVE (NEGATIVE); LEUKOCYTE ESTERASE, URINE AUTO NEGATIVE (NEGATIVE); MUCUS, URINE SMALL (NEGATIVE); NITRITE, URINE AUTO NEGATIVE (NEGATIVE); PROTEIN, URINE AUTO NEGATIVE (NEGATIVE); RBC, URINE AUTO 2 /HPF (0-3); SPECIFIC GRAVITY URINE AUTO 1.026 (1.002-1.035); SQUAMOUS EPITHELIAL CELL UR AU 0 /HPF (0-6); UROBILINOGEN, URINE AUTO 0.2 mg/dL (0.0-2.0); WBC, URINE AUTO 1 /HPF (0-3)
== END ==
LOC: M SMT 17:22
PROVIDERS: ATTEND Physician Assistant
DX: R97.20 Elevated prostate specific antigen [PSA] (principal); Z79.899 Other long term (current) drug therapy

== ENCOUNTER 2023-04-19 06:27 | Day surgery (SDC) | payer MEDICARE, MEDICAID ==
[~2023-04-19] VITALS: Ht 177.8 cm; Wt 100.7 kg
[~2023-04-19 06:27] MED LIST changes: +CIPROFLOXACIN 400 MG in IV 1 EA IV ONE
[2023-04-19] MEDS ORDERED: LR 1,000 ML IV SCH (07:05)
[2023-04-19] MEDS ORDERED: SODIUM CHLORIDE 0.9% INJ 10 ML SYR IV PRN (07:05)
[2023-04-19] MEDS ORDERED: MIDAZOLAM INJ 2MG/2ML VIAL As Ordered ONE (07:13)
[2023-04-19] MEDS ORDERED: LIDOCAINE 2% 100MG/5ML SDV (FOR ANES.) As Ordered ONE (07:13)
[2023-04-19] MEDS ORDERED: fentaNYL 100 MCG/2 ML INJECTION As Ordered ONE (07:13)
[2023-04-19] MEDS ORDERED: propofoL 200 MG/20 ML VIAL As Ordered ONE (07:13)
[2023-04-19] MEDS ORDERED: LIDOCAINE 2% 5ML JELLY UROJET As Ordered ONE (08:10)
[2023-04-19] MEDS ORDERED: SODIUM CHLORIDE 0.9% INJ 10 ML SYR IV SCH (09:00)
[2023-04-19] MEDS ORDERED: CIPR-249 PO (09:04)
[2023-04-19 09:07] VITALS: BP 154/91; TEMP 98.3; O2SAT 97
== END 2023-04-19 09:12 | disposition home or self-care (01) ==
LOC: M SDC 06:27
PROVIDERS: ATTEND Urology
DX: R97.20 Elevated prostate specific antigen [PSA] (principal); Z80.52 Family history of malignant neoplasm of bladder; G47.9 Sleep disorder, unspecified; Z91.040 Latex allergy status; Z88.5 Allergy status to narcotic agent; Z88.8 Allergy status to other drugs, medicaments and biological substances; Z87.891 Personal history of nicotine dependence
CPT/HCPCS: 52000; 55700; 76872; G0416; J0744; J2250; J3010

== ENCOUNTER 2023-08-08 11:58 | Emergency (ER) | payer MEDICARE, MEDICAID ==
[~2023-08-08] VITALS: Ht 180.3 cm; Wt 100.0 kg
[~2023-08-08 11:58] MED LIST changes: +CIPR-249 PO; -CIPROFLOXACIN 400 MG in IV 1 EA IV ONE
[2023-08-08] MEDS ORDERED: PANTOPRAZOLE 40MG VIAL IV ONE (12:35)
[2023-08-08] MEDS ORDERED: ONDANSETRON 4MG 2ML VIAL IV ONE (12:35)
[2023-08-08] MEDS ORDERED: MORPHINE 2 MG/ML 1ML VIAL IV ONE (12:35)
[2023-08-08] MEDS ORDERED: NS 1,000 ML IV ONE (12:35)
[2023-08-08] MEDS ORDERED: MORPHINE 4 MG/ML 1ML VIAL IV ONE ×2 (13:40→15:30)
[2023-08-08 13:42] LABS: BASO # 0.1 10^3/uL (0.0-0.2); BASO % 0.7 % (0.0-1.0); EOS # 0.2 10^3/uL (0.0-0.5); EOS % 2.4 % (0.0-3.0); HEMOGLOBIN 13.5 g/dl (13.5-17.5); LYMPH # 1.8 10^3/uL (1.5-5.0); LYMPH % 18.4 % (24.0-44.0); MEAN CORPUSCULAR HEMOGLOBIN 32.4 pg (27.0-33.0); MEAN CORPUSCULAR HGB CONC 33.8 g/dl (32.0-36.5); MEAN CORPUSCULAR VOLUME 95.9 fl (80.0-96.0); MONO # 0.8 10^3/uL (0.0-0.8); MONO % 8.1 % (2.0-8.0); NEUTROPHILS # 6.8 10^3/uL (1.5-8.5); NEUTROPHILS % 69.7 % (36.0-66.0); PLATELET COUNT, AUTOMATED 272 10^3/uL (150-450); RED BLOOD COUNT 4.17 10^6/uL (4.30-6.10); WHITE BLOOD COUNT 9.7 10^3/uL (4.0-10.0)
[2023-08-08 14:05] LABS: LIPASE 40 U/L (12-53)
[2023-08-08 14:06] LABS: CPK CREATINE PHOSPHOKINASE 50 U/L (46-171)
[2023-08-08 14:07] LABS: ALBUMIN 3.2 G/DL (3.2-5.2); ALKALINE PHOSPHATASE 71 U/L (46-116); ALT/SGPT 26 U/L (7.0-40); AST/SGOT 14 U/L (<34); BILIRUBIN,DIRECT 0.1 MG/DL (<0.4); BILIRUBIN,TOTAL 0.4 MG/DL (0.3-1.2); BLOOD UREA NITROGEN 13 MG/DL (9-23); CARBON DIOXIDE LEVEL 30 MMOL/L (20-31); CHLORIDE LEVEL 105 MMOL/L (98-107); CK-MB VALUE MASS < 1.0 NG/ML (<3.6); CREATININE FOR GFR 0.89 MG/DL (0.70-1.30); GLOMERULAR FILTRATION RATE > 60.0 (>49); GLUCOSE, FASTING 84 MG/DL (74-106); MAGNESIUM LEVEL 2.1 MG/DL (1.8-2.4); POTASSIUM SERUM 3.3 MMOL/L (3.5-5.1); SODIUM LEVEL 141 MMOL/L (136-145); TOTAL PROTEIN 6.3 G/DL (5.7-8.2)
[2023-08-08] MEDS ORDERED: ISOVUE-370 76% 100ML VIAL As Ordered ONE ×3 (14:16→20:55)
[2023-08-08 14:17] LABS: RSV AMPLIFICATION NEGATIVE (NEGATIVE)
[2023-08-08] MEDS: KCL 10MEQ/100ML SWI (KRUN) 10 MEQ in IV 1 EA IV SCH ×3 (15:42→21:21)
[2023-08-08] MEDS ORDERED: HYDROMORPHONE HCL 0.5 MG/ 0.5 ML SYRINGE IV ONE (17:15)
[2023-08-08 17:30] VITALS: TEMP 98.1
[2023-08-08] MEDS ORDERED: LOSA50TA28 PO (17:53)
[2023-08-08] MEDS ORDERED: TREL1AER INH (17:53)
[2023-08-08] MEDS ORDERED: HOME MED LIST COMPLETE! XX SCH (18:05)
[2023-08-08] MEDS: GASTROGRAFIN SOLUTION 30ML PO SCH ×2 (18:25→19:07)
[2023-08-08] MEDS: HYDROMORPHONE HCL 0.5 MG/ 0.5 ML SYRINGE IV PRN (20:14)
[2023-08-08] MEDS ORDERED: KCL 10MEQ IN STERILE WATER 100ML As Ordered ONE (21:17)
[2023-08-09] MEDS ORDERED: METOCLOPRAMIDE INJ 10MG/2ML VIAL IV ONE (00:15)
[2023-08-09] MEDS ORDERED: OXYCODONE/APAP 5MG/325MG(HOME DOSE PACK) PO ONE (00:25)
[2023-08-09] MEDS ORDERED: ONDA4TAB6 PO (00:26)
[2023-08-09 00:45] VITALS: BP 135/68; O2SAT 99
[2023-08-09] MEDS: HYDROMORPHONE HCL 0.5 MG/ 0.5 ML SYRINGE IV PRN (00:45)
== END 2023-08-09 00:56 | disposition home or self-care (01) ==
LOC: EDBD 11:58 → M ED 11:58
DX: K50.90 Crohn's disease, unspecified, without complications (principal); Z79.899 Other long term (current) drug therapy; Z88.4 Allergy status to anesthetic agent; Z88.5 Allergy status to narcotic agent; Z79.83 Long term (current) use of bisphosphonates; Z79.810 Long term (current) use of selective estrogen receptor modulators (SERMs); Z79.01 Long term (current) use of anticoagulants
CPT/HCPCS: 74176; 74177; 80047; 80048; 80076; 82550; 82553; 83605; 83690; 83735; 84484; 85025; 86140; 87040; 87077; 87631; 93005; 93041; 96361; 96365; 96366; 96375; 96376; 99285; C9113; J1170; J2405; J2765; Q9963; Q9967

== ENCOUNTER 2025-03-10 15:21 | Emergency (ER) | payer MEDICARE, MEDICAID ==
[~2025-03-10] VITALS: Ht 177.8 cm; Wt 108.6 kg
[~2025-03-10 15:21] MED LIST changes: +ONDA-282 PO; +TREL1AER INH
[2025-03-10 17:30] VITALS: BP 145/94
[2025-03-10 17:36] VITALS: O2SAT 93
[2025-03-10 18:16] VITALS: TEMP 97.7
[2025-03-10] MEDS: PERCOCET 5MG/325MG TAB PO ONE (18:49)
[2025-03-10] MEDS: ONDANSETRON 4MG ORAL DISINTEGRATING TAB PO ONE (18:54)
== END 2025-03-10 19:53 | disposition left against medical advice (07) ==
LOC: M ED 15:21
DX: M54.50 Low back pain, unspecified (principal); I10 Essential (primary) hypertension; Z88.5 Allergy status to narcotic agent; Z88.8 Allergy status to other drugs, medicaments and biological substances; Z91.040 Latex allergy status; Z79.899 Other long term (current) drug therapy; Z79.01 Long term (current) use of anticoagulants; Z79.810 Long term (current) use of selective estrogen receptor modulators (SERMs); Z53.9 Procedure and treatment not carried out, unspecified reason

== ENCOUNTER 2025-03-12 07:42 | Observation (INO) | payer MEDICARE, MEDICAID ==
[~2025-03-12] VITALS: Ht 177.8 cm; Wt 106.7 kg
[2025-03-12 09:38] LABS: BASO # 0.1 10^3/uL (0.0-0.2); BASO % 0.8 % (0.0-1.0); EOS # 0.2 10^3/uL (0.0-0.5); EOS % 2.1 % (0.0-3.0); LYMPH # 2.0 10^3/uL (1.5-5.0); LYMPH % 26.8 % (24.0-44.0); MONO # 0.6 10^3/uL (0.0-0.8); MONO % 8.0 % (2.0-8.0); NEUTROPHILS # 4.6 10^3/uL (1.5-8.5); NEUTROPHILS % 61.8 % (36.0-66.0); PLATELET COUNT, AUTOMATED 268 10^3/uL (150-450)
[2025-03-12] MEDS: HYDROMORPHONE HCL 0.5 MG/0.5 ML SYRINGE IV PRN ×4 (09:43→21:20)
[2025-03-12 09:48] LABS: ERYTHROCYTE SEDIMENTATION RATE 34 mm/hr (0-20)
[2025-03-12 09:50] LABS: INR 1.23
[2025-03-12 09:51] LABS: KETONE, URINE AUTO RFX NEGATIVE (NEGATIVE); LEUKOCYTE ESTERASE UR AUTO RFX NEGATIVE (NEGATIVE); MUCUS, URINE RFX SMALL (NEGATIVE); NITRITE, URINE AUTO RFX NEGATIVE (NEGATIVE); RBC, URINE AUTO RFX 0 /HPF (0-3); SQUAM EPITHELIAL CELL UR AURFX 0 /HPF (0-6); WBC, URINE AUTO RFX 1 /HPF (0-3)
[2025-03-12 10:07] LABS: ALT/SGPT 24.0 U/L (7.0-40); AST/SGOT 18.0 U/L (<34); C REACTIVE PROTEIN QUANTITATIV 2.11 MG/DL (<1.0); CALCIUM LEVEL 9.2 MG/DL (8.3-10.6); CARBON DIOXIDE LEVEL 31.0 MMOL/L (20-31); CHLORIDE LEVEL 105.0 MMOL/L (98-107); CREATININE FOR GFR 1.0 MG/DL (0.70-1.30); GLOMERULAR FILTRATION RATE 84.1 (>49); POTASSIUM SERUM 3.6 MMOL/L (3.5-5.1); SODIUM LEVEL 146.0 MMOL/L (136-145)
[2025-03-12] MEDS: ONDANSETRON 4MG 2ML VIAL IV ONE ×2 (10:20→16:29)
[2025-03-12] MEDS ORDERED: ONDA-282 PO (13:03)
[2025-03-12] MEDS ORDERED: POTA10TA67 PO (13:03)
[2025-03-12] MEDS ORDERED: MULTTAB61 PO (13:03)
[2025-03-12] MEDS ORDERED: HOME MED LIST COMPLETE! XX SCH (13:05)
[2025-03-12] MEDS ORDERED: PROHANCE 279.3MG/ML 15ML VIAL As Ordered ONE (14:18)
[2025-03-12] MEDS ORDERED: PROHANCE 279.3MG/ML 5ML VIAL As Ordered ONE (14:18)
[2025-03-12] MEDS ORDERED: ONDANSETRON 4MG 2ML VIAL IV ONE (16:45)
[2025-03-12] MEDS ORDERED: HYDROmorphone HCL 2 MG/ML 1 ML VIAL IV PRN ×2 (20:55→21:55)
[2025-03-12] MEDS ORDERED: ACETAMINOPHEN 325 MG TAB PO PRN (20:55)
[2025-03-12] MEDS: ONDANSETRON 4MG 2ML VIAL IV PRN (21:19)
[2025-03-12] MEDS: DOCUSATE SODIUM 100 MG CAPSULE PO SCH (21:32)
[2025-03-12] MEDS ORDERED: LIDOCAINE 5% PATCH TD SCH (21:55)
[2025-03-12] MEDS: LIDOCAINE 5% PATCH TD SCH (22:53)
[2025-03-13] MEDS: HYDROMORPHONE HCL 0.5 MG/0.5 ML SYRINGE IV PRN (03:57)
[2025-03-13 06:20] LABS: BASO # 0.1 10^3/uL (0.0-0.2); BASO % 0.7 % (0.0-1.0); EOS # 0.2 10^3/uL (0.0-0.5); EOS % 3.0 % (0.0-3.0); LYMPH # 2.2 10^3/uL (1.5-5.0); LYMPH % 30.2 % (24.0-44.0); MONO # 0.7 10^3/uL (0.0-0.8); MONO % 8.8 % (2.0-8.0); NEUTROPHILS # 4.2 10^3/uL (1.5-8.5); NEUTROPHILS % 57.0 % (36.0-66.0); PLATELET COUNT, AUTOMATED 260 10^3/uL (150-450)
[2025-03-13 06:52] LABS: ALT/SGPT 25.0 U/L (7.0-40); AST/SGOT 20.0 U/L (<34); CALCIUM LEVEL 8.8 MG/DL (8.3-10.6); CARBON DIOXIDE LEVEL 32.0 MMOL/L (20-31); CHLORIDE LEVEL 104.0 MMOL/L (98-107); CREATININE FOR GFR 1.0 MG/DL (0.70-1.30); GLOMERULAR FILTRATION RATE 84.1 (>49); POTASSIUM SERUM 3.5 MMOL/L (3.5-5.1); SODIUM LEVEL 145.0 MMOL/L (136-145)
[2025-03-13] MEDS: BACLOFEN 5 MG PER 1/2 TABLET PO SCH (07:30)
[2025-03-13] MEDS: CYANOCOBALAMIN 500 MCG TAB PO SCH (07:31)
[2025-03-13] MEDS: LOSARTAN 50 MG TABLET PO SCH (07:31)
[2025-03-13] MEDS: PANTOPRAZOLE 40MG TAB PO SCH (07:31)
[2025-03-13] MEDS: POTASSIUM CHLORIDE 10MEQ SR TABLET PO SCH (07:32)
[2025-03-13] MEDS: RIVAROXABAN 20MG TAB PO SCH (07:32)
[2025-03-13] MEDS ORDERED: DOCUSATE SODIUM 100 MG CAPSULE PO SCH (09:00)
[2025-03-13] MEDS: KETOROLAC 30 MG/ML 1 ML VIAL IV ONE ×2 (09:18→18:52)
[2025-03-13] MEDS: HEPARIN LOCK FLUSH 100 UNITS/ML 3 ML SYRINGE IV PRN (09:21)
[2025-03-13] MEDS: CYCLOBENZAPRINE 5 MG TABLET PO SCH (14:04)
[2025-03-13] MEDS: MOM 30 ML SUSPENSION UDC PO PRN (14:07)
[2025-03-13] MEDS: MORPHINE 2 MG/ML 1 ML VIAL IV PRN (15:02)
[2025-03-13] MEDS: ACETAMINOPHEN 500 MG TAB PO SCH (16:00)
[2025-03-13 16:30] VITALS: BP 133/86; TEMP 97.7; O2SAT 96
[2025-03-13 20:19] VITALS: BP 134/83; TEMP 97.7; O2SAT 82; O2SAT 92
[2025-03-14] VITALS (9 sets, daily range): BP systolic 119–160; BP diastolic 69–101; TEMP 97.3–97.9; O2SAT 92–95
[2025-03-14] MEDS: ACETAMINOPHEN *IV* 1,000 MG in IV 1 EA IV ONE (02:16)
[2025-03-14] MEDS ORDERED: VANCOMYCIN HCL IV SCH (03:25)
[2025-03-14] MEDS ORDERED: FLUID PLACE HOLDER IV SCH (03:25)
[2025-03-14] MEDS: VANCOMYCIN HCL 2,000 MG, VIAL MATE ADAPTER 1 EACH in NS 500 ML IV ONE (04:05)
[2025-03-14 06:50] LABS: BASO # 0.0 10^3/uL (0.0-0.2); BASO % 0.6 % (0.0-1.0); EOS # 0.2 10^3/uL (0.0-0.5); EOS % 3.2 % (0.0-3.0); LYMPH # 1.9 10^3/uL (1.5-5.0); LYMPH % 28.1 % (24.0-44.0); MONO # 0.5 10^3/uL (0.0-0.8); MONO % 7.8 % (2.0-8.0); NEUTROPHILS # 4.1 10^3/uL (1.5-8.5); NEUTROPHILS % 59.9 % (36.0-66.0); PLATELET COUNT, AUTOMATED 250 10^3/uL (150-450)
[2025-03-14 07:23] LABS: CALCIUM LEVEL 8.0 MG/DL (8.3-10.6); CARBON DIOXIDE LEVEL 31.0 MMOL/L (20-31); CHLORIDE LEVEL 107.0 MMOL/L (98-107); CREATININE FOR GFR 0.97 MG/DL (0.70-1.30); GLOMERULAR FILTRATION RATE 87.2 (>49); POTASSIUM SERUM 3.5 MMOL/L (3.5-5.1); SODIUM LEVEL 147.0 MMOL/L (136-145)
[2025-03-14] MEDS: SODIUM CHLORIDE 0.9% INJ 10 ML SYR IV PRN (09:44)
[2025-03-14] MEDS: MAGNESIUM CITRATE 300 ML BTL PO ONE (13:22)
[2025-03-14] MEDS: ONDANSETRON 4MG ORAL DISINTEGRATING TAB SL PRN (14:17)
[2025-03-14] MEDS ORDERED: VANCOMYCIN HCL 1,250 MG, VIAL MATE ADAPTER 1 EACH in NS 250 ML IV SCH (16:00)
[2025-03-14] MEDS ORDERED: diphenhydrAMINE 50 MG/ML VIAL IM PRN (21:55)
[2025-03-15] VITALS (10 sets, daily range): BP systolic 152–162; BP diastolic 33–96; TEMP 97.5–98.5; O2SAT 91–95
[2025-03-15 06:21] LABS: PLATELET COUNT, AUTOMATED 246 10^3/uL (150-450)
[2025-03-15 06:44] LABS: CALCIUM LEVEL 8.4 MG/DL (8.3-10.6); CARBON DIOXIDE LEVEL 30 MMOL/L (20-31); CHLORIDE LEVEL 109 MMOL/L (98-107); CREATININE FOR GFR 0.93 MG/DL (0.70-1.30); GLOMERULAR FILTRATION RATE > 90.0 (>49); POTASSIUM SERUM 3.7 MMOL/L (3.5-5.1); SODIUM LEVEL 148 MMOL/L (136-145)
[2025-03-15] MEDS ORDERED: CYCL5TAB4 PO (11:20)
[2025-03-15] MEDS ORDERED: OXYC-517 PO (11:20)
[2025-03-16] MEDS ORDERED: PERCOCET 5MG/325MG TAB PO PRN (04:10)
[2025-03-16] MEDS ORDERED: ACETAMINOPHEN 325 MG TAB PO PRN (04:10)
[2025-03-16 04:30] VITALS: BP_SYST 114; BP_SYST 164; BP_DIAS 62; BP_DIAS 93; TEMP 98.1; O2SAT 94
[2025-03-16] MEDS: PERCOCET 5MG/325MG TAB PO PRN (05:59)
[2025-03-16 07:02] LABS: PLATELET COUNT, AUTOMATED 242 10^3/uL (150-450)
[2025-03-16 07:36] LABS: C REACTIVE PROTEIN QUANTITATIV 1.13 MG/DL (<1.0); CALCIUM LEVEL 8.2 MG/DL (8.3-10.6); CARBON DIOXIDE LEVEL 29.0 MMOL/L (20-31); CHLORIDE LEVEL 107.0 MMOL/L (98-107); CREATININE FOR GFR 0.98 MG/DL (0.70-1.30); GLOMERULAR FILTRATION RATE 86.1 (>49); PHOSPHORUS LEVEL 3.9 MG/DL (2.4-5.1); POTASSIUM SERUM 3.9 MMOL/L (3.5-5.1); SODIUM LEVEL 146.0 MMOL/L (136-145)
[2025-03-16 12:00] VITALS: BP 144/88; TEMP 98.1; O2SAT 92
[2025-03-16] MEDS: diphenhydrAMINE 50 MG/ML VIAL IV PRN (20:15)
[2025-03-16] MEDS: MORPHINE 2 MG/ML 1 ML VIAL IV PRN (20:16)
[2025-03-16 21:40] VITALS: BP_SYST 138; BP_SYST 139; BP_DIAS 74; BP_DIAS 93; TEMP 97.9; TEMP 98.1; O2SAT 95
[2025-03-17] MEDS: ERYTHROMYCIN OPHTH OINT OU SCH (02:26)
[2025-03-17 04:00] VITALS: BP 149/87; TEMP 97.9; O2SAT 94
[2025-03-17 08:39] VITALS: BP 154/93
[2025-03-17 08:50] VITALS: O2SAT 94
[2025-03-17 12:00] VITALS: BP 157/94; TEMP 98.2; O2SAT 93
[2025-03-17] MEDS ORDERED: MORP1SOL SL (12:46)
[2025-03-17] MEDS: MORPHINE 10 MG/0.5 ML ORAL CONCENTRATE SOLUTION U/D SL PRN (14:54)
== END 2025-03-17 19:11 | disposition home or self-care (01) ==
LOC: EDBD 07:42 → M ED 07:42 → M ED INP 21:56 → M MSPAV 03-13 16:30 → M MS4PR 03-14 15:10 → OBSVTOIN 03-15 12:44 → INTOOBSV 03-15 12:44
PROVIDERS: ADMIT Internal Medicine; ATTEND Family Medicine
DX: M54.50 Low back pain, unspecified (principal); G89.11 Acute pain due to trauma; I10 Essential (primary) hypertension; K50.90 Crohn's disease, unspecified, without complications; Z86.718 Personal history of other venous thrombosis and embolism; K21.9 Gastro-esophageal reflux disease without esophagitis; Z85.51 Personal history of malignant neoplasm of bladder; M19.90 Unspecified osteoarthritis, unspecified site; M43.22 Fusion of spine, cervical region; M50.122 Cervical disc disorder at C5-C6 level with radiculopathy; M50.123 Cervical disc disorder at C6-C7 level with radiculopathy; Z87.891 Personal history of nicotine dependence; Z79.899 Other long term (current) drug therapy; Z88.5 Allergy status to narcotic agent; Z91.040 Latex allergy status; Z88.8 Allergy status to other drugs, medicaments and biological substances
CPT/HCPCS: 72131; 72158; 72197; 74176; 80048; 80053; 80069; 80076; 81001; 83690; 84145; 85025; 85027; 85610; 85652; 85730; 86140; 86850; 86900; 86901; 87040; 87077; 87154; 93005; 93041; 96365; 96375; 96376; 97161; 99285; A9576; G0378; J0131; J1171; J1200; J1642; J1885; J2405; J2550; J2765; J3374

== ENCOUNTER → 2025-05-02 | Outpatient (CLI) | payer OTHER, MEDICAID ==
[~2025-05-02] MED LIST changes: +CYCL5TAB4 PO; +MORP1SOL SL; +MULTTAB61 PO; +OXYC-517 PO; +POTA10TA67 PO
== END ==
LOC: M RAD 09:37
PROVIDERS: ATTEND Physician Assistant
DX: M54.50 Low back pain, unspecified (principal)